=== PATIENT | male | born 1960 | race Caucasian/White ===

== ENCOUNTER 2019-10-21 12:30 | Inpatient (IN) | payer OTHER ==
[2019-10-21] MEDS ORDERED: Iopamidol-370 76% 500 ML 1 ML ONE (13:13)
[2019-10-21 13:34] LABS: #Basophils 0.1 thou/uL (0.0-0.2); #Eosinphils 0.3 thou/uL (0.0-0.7); #Lymphocytes 1.7 thou/uL (1.20-3.40); #Monocytes 0.7 thou/uL (0.11-0.59); #Neutrophils 3.3 thou/uL (1.40-6.50); %Basophils 0.8 % (0.0-1.0); %Eosinophils 5.3 % (0.0-10.0); %Lymphocytes 27.7 % (21.0-51.0); %Monocytes 11.8 % (0.0-10.0); %Neutrophils 54.3 % (42.0-75.0); Hemoglobin 13.9 g/dL (14.0-18.0); Mean Corpuscular Hemoglobin 32.4 pg (27.0-31.0); Mean Corpuscular Volume 95.4 fL (78.0-98.0); Mean Platelet Volume 9.1 fL (7.4-10.4); Platelet Count 197 thou/uL (130-400); RBC Distribution Width 13.6 % (11.5-14.5); Red Blood Cell (RBC) Count 4.28 mill/uL (4.70-6.10)
--- NOTE | 2019-10-21 13:36 | CT ---
Exam: Head CT without contrast HISTORY: Frequent falls. Disequilibrium. COMPARISON: 01/29/2003 FINDINGS: Hemorrhage: No intraparenchymal hemorrhage or extra-axial hematoma. Brain parenchyma: Cortical odonnell-white matter differentiation is preserved. No mass effect or midline shift. Basilar cisterns are patent. Ventricular system: Ventricles and sulci are patent and symmetric. Calvarium: Intact. Sinuses and mastoid air cells: Mucosal thickening of the right frontal sinus. IMPRESSION: No acute intracranial process.
[2019-10-21 13:43] LABS: PTT 29.2 sec (22.9-36.1); Prothrombin Time 12.9 sec (12.0-14.7)
[2019-10-21 13:47] LABS: ALT (SGPT) 11 U/L (8-55); AST (SGOT) 18 U/L (5-34); Albumin 3.4 g/dL (3.5-5.0); Alkaline Phosphatase 74 U/L (40-110); Anion Gap 11 mmol/L (10-20); BUN (Urea Nitrogen) 16 mg/dL (8.4-25.7); Bilirubin, Total 0.7 mg/dL (0.2-1.2); Calc. Creatinine Clearance 0 mL/min (70-130); Calcium 8.7 mg/dL (7.8-10.44); Carbon Dioxide 26 mmol/L (22-29); Chloride 107 mmol/L (98-107); Estimated GFR-MDRD 76; Globulin 2.9 g/dL (2.4-3.5); Glucose 118 mg/dL (70-105); Potassium 3.5 mmol/L (3.5-5.1); Protein, Total 6.3 g/dL (6.0-8.3); Sodium 140 mmol/L (136-145)
[2019-10-21 14:20] LABS: Bacteria/HPF None Seen HPF (None Seen); Bilirubin Negative (Negative); Blood, Urine Negative (Negative); Clarity Turbid (Clear); Glucose, Urine (Dipstick) Normal (Negative); Leukocyte 25 Leu/uL (Negative); Nitrite Negative (Negative); Protein, Urine (Dipstick) Negative (Neg-Trace); RBC/HPF 0-3 HPF (0-3); Squamous Epithelial 0-3 HPF (0-3); WBC/HPF 0-3 HPF (0-3)
[2019-10-21] MEDS ORDERED: Aspirin 325 MG TAB ONE (15:16)
--- NOTE | 2019-10-21 16:08 | RAD ---
Chest one view HISTORY: Weakness. Dyspnea. COMPARISON: 12/04/2015. FINDINGS: Cardiac silhouette and pulmonary vasculature are unremarkable. Mediastinum is midline with postoperative changes. No lobar consolidation or evidence of pneumothorax. Calcified granulomata are consistent with healed granulomatous disease. monitor and storage bin tender leads overlie the chest. IMPRESSION : No active cardiopulmonary abnormalities are demonstrated.
[2019-10-21] MEDS ORDERED: Acetaminophen 325 MG TAB PO PRN (17:01)
[2019-10-21] MEDS ORDERED: Ondansetron ODT 4 MG TAB SL PRN (17:01)
[2019-10-21] MEDS ORDERED: Ondansetron PF 4 MG/2 ML Vial IVP PRN ×2 (17:01→18:42)
[2019-10-21 18:20] VITALS: BMI 29.1
[2019-10-21] MEDS ORDERED: Ondansetron ODT 4 MG TAB PO PRN (18:42)
[2019-10-21] MEDS: PROVENTIL INHALER 6.7 G (200 INHALATIONS) INH SCH (19:31)
[2019-10-21] MEDS: Cyclobenzaprine 10 MG TAB PO SCH (20:57)
[2019-10-21] MEDS: Atorvastatin Calcium 40 MG TAB PO SCH (20:57)
[2019-10-21] MEDS: Carvedilol 6.25 MG TAB PO SCH (20:58)
--- NOTE | 2019-10-21 21:07 | HP ---
PRIMARY CARE PHYSICIAN: Chelle Acuña at the [facility]. CHIEF COMPLAINT: I have been staggering since yesterday. HISTORY OF PRESENT ILLNESS: Mr. Villarreal is a very pleasant 59-year-old gentleman, who has a history of hypertension and coronary artery disease. He was in his usual state of health until yesterday. He says that he was working on a drive shaft on a car. He says he was feeling fine prior to going on to the car to do work. When he finished doing the work and was trying to get up, he says he could barely stand up and was staggering. He also noted some numbness on the left side of his face and his left arm was numb. He also says that his leg on the left side did not seem to work the way it should. He has been having some numbness in both hands off and on for sometime. He thought about coming to the ER and in fact called the hospital ahead of time and they said for him to come on to the hospital, but he went to sleep and said he thought he might feel better in the morning but when he got up, he tried to stand up and then fell and then says he has fallen at least 3 times since this started and noticed that he was having difficulty walking and staggering and for this reason, he came to the ER for evaluation. He denies any chest pain or shortness of breath. No fevers, no chills. He does admit that he has been having some difficulty with swallowing. He says he has had gastroesophageal reflux or heartburn like symptoms for many years. He says that Prevacid and Pepcid had stopped working a while back and he basically just takes smith soda and water and this helps. He also notes some pain when he tries to eat as well and he says he has been having some trouble with bladder control off and on. Other than that, the review of systems is negative. REVIEW OF SYSTEMS: With regard to review of systems, all systems were reviewed and are negative except for that mentioned in the history of present illness. PAST MEDICAL HISTORY: Significant for hypertension, coronary artery disease, congestive heart failure, and asthma. PAST SURGICAL HISTORY: He has had bilateral hip replacements, as well as bypass surgery in the past. ALLERGIES: NO KNOWN DRUG ALLERGIES. SOCIAL HISTORY: He lives alone. He is . He has four children, which are better living. He smokes about a pack a day since he was 14 years old. He has been incarcerated four different times, during which time he did not smoke. He also drinks alcohol 24 ounces and he says he will drink this about seven times a month. He has not designated a surrogate decision maker, but he would like to be a full code. FAMILY HISTORY: Significant for COPD and diabetes in his mother. His father, he did know what illnesses are on his father's side. MEDICATIONS: Include: 1. Albuterol inhaler. 2. Carvedilol 6.25 mg twice daily. 3. Flexeril 5 mg t.i.d. 4. Folic acid 1 mg daily. 5. Motrin 800 mg t.i.d. 6. Lisinopril 10 mg daily. 7. Flomax 0.4 mg daily. PHYSICAL EXAMINATION: GENERAL: He is alert and oriented. He appears to be in no acute distress. He is well developed and well nourished. VITAL SIGNS: On admission, his blood pressure was 136/87, heart rate 65, respiratory rate of 13, temperature is 98.4. HEENT: Pupils are equal, round, and reactive. Extraocular muscles are intact. His sclerae anicteric. Throat, no erythema. No exudates. He is edentulous. Uvula is midline. NECK: There is no adenopathy. No bruits. LUNGS: He did have some mild expiratory wheeze, but there are no rhonchi. No rales. CARDIOVASCULAR: He has a normal S1 and S2. No S3 or S4. No murmurs, clicks, or rubs. ABDOMEN: Soft, nontender, and nondistended. Positive for bowel sounds. No rebound. No guarding. No organomegaly. EXTREMITIES: There is no clubbing or cyanosis. No edema. No calf tenderness. No joint effusions. NEUROLOGIC: His cranial nerves were essentially intact. His muscle strength was slightly weaker in the left lower extremity compared to the right, but he was able to lift his leg against resistance. He also had some difficulty with [id number] on the left leg and had some mild past-pointing with the left finger to nose. Romberg was not performed. Reflexes were slightly diminished but were essentially even throughout. On the skin, he had some changes of sun damage on his forehead as well as the back of the neck, there was an oval-like area in the center of the neck, had some pearly raised borders suspicious for possible basal cell carcinoma. He had another area that was slightly irregular on the left ankle that was irregular borders. LABORATORY DATA: Lab results: White blood cell count was 6.0, hemoglobin 13.9, hematocrit is 40.8, and platelet count was 197. INR is 1.0. Chemistry; sodium is 140, potassium 3.5, chloride is 107, CO2 is 26, BUN of 16, creatinine 1.0, glucose is 118. Urinalysis was essentially negative. EKG was sinus rhythm, the rate was in the 60s. He had some nonspecific ST-wave changes. CT scan of the brain was negative for any acute intracranial abnormalities. ASSESSMENT: This is a pleasant 59-year-old gentleman, who presents with ataxia and some slight weakness in the left lower extremity as well as some sensory loss. He will be placed in observation for possible transient ischemic attack versus stroke. Get an MRI of the brain as well as CT angiogram to evaluate the posterior circulation, echocardiogram and lipid panel. We will place him on aspirin therapy. 1. Tobacco abuse. He has already been counseled on the need to quit smoking. He says he does not feel that he needs a patch while he is in the hospital. 2. Coronary artery disease. We will need to reconcile and restart his home medications and again this appears to be clinically stable. 3. Possible skin cancers. I have discussed the possibility with the patient and the need to have these looked at by his primary care physician and possibly a Dermatology referral. 4. Gastroesophageal reflux disease, dysphagia and odynophagia. This is likely result of gastroesophageal reflux disease. However, given his age, this should be evaluated as well and this can also be accomplished in the outpatient setting. Job ID: [id number]
--- NOTE | 2019-10-21 22:21 | CT ---
CT ANGIO OF NECK WITH IV CONTRAST AND 3D POSTPROCESSIN10/21/19 HISTORY: Frequent falls and disequilibrium, left arm numbness. TIA. FINDINGS: There is mild calcified plaque in the carotid bulbs on either side. There is good flow in the common carotid, internal carotid and vertebrobasilar arteries without significant stenosis. There is tortuo sity of the internal carotid arteries on both sides. There are multilevel degenerative changes in the cervical spine. No neck mass or lymphadenopathy see n. The visualized paranasal sinuses and mastoids air cells are well aerated. IMPRESSION: No evidence of hemodynamically significant stenosis in the arteries of the neck. POS: RENATA
[2019-10-22] MEDS: PROVENTIL INHALER 6.7 G (200 INHALATIONS) INH SCH ×5 (00:08→23:28)
[2019-10-22 05:04] LABS: #Eosinphils 0.4 thou/uL (0.0-0.7); #Lymphocytes 1.9 thou/uL (1.20-3.40); #Monocytes 0.6 thou/uL (0.11-0.59); %Basophils 0.6 % (0.0-1.0); %Eosinophils 7.4 % (0.0-10.0); %Lymphocytes 31.3 % (21.0-51.0); %Monocytes 10.2 % (0.0-10.0); %Neutrophils 50.5 % (42.0-75.0); Hemoglobin 13.3 g/dL (14.0-18.0); Mean Corpuscular HGB CONC 32.4 g/dL (32.0-36.0); Mean Corpuscular Hemoglobin 31.1 pg (27.0-31.0); Mean Corpuscular Volume 95.9 fL (78.0-98.0); Mean Platelet Volume 9.1 fL (7.4-10.4); Platelet Count 197 thou/uL (130-400); RBC Distribution Width 13.5 % (11.5-14.5); Red Blood Cell (RBC) Count 4.28 mill/uL (4.70-6.10); White Blood Cell (WBC) Count 5.9 thou/uL (4.8-10.8)
[2019-10-22 05:23] LABS: Anion Gap 11 mmol/L (10-20); BUN (Urea Nitrogen) 13 mg/dL (8.4-25.7); Calc. Creatinine Clearance 121 mL/min (70-130); Calcium 8.2 mg/dL (7.8-10.44); Carbon Dioxide 24 mmol/L (22-29); Chloride 104 mmol/L (98-107); Cholesterol 137 mg/dl (< 200 Desired); Estimated GFR-MDRD 90; Glucose 88 mg/dL (70-105); HDL Cholesterol 46 mg/dL (>60 Neg Risk); LDL Cholesterol, Calculated 67 mg/dL; Potassium 3.1 mmol/L (3.5-5.1); Sodium 136 mmol/L (136-145); Triglycerides 119 mg/dL (Less than 150)
[2019-10-22] MEDS ORDERED: Potassium Chloride 20 MEQ TAB PO SCH (08:15)
[2019-10-22] MEDS: Aspirin 325 mg Enteric Coated Tablet PO SCH (08:24)
[2019-10-22] MEDS: Cyclobenzaprine 10 MG TAB PO SCH ×3 (08:24→20:19)
[2019-10-22] MEDS: Lisinopril 20 MG TAB PO SCH (08:24)
[2019-10-22] MEDS: Tamsulosin HCl 0.4 MG CAP PO SCH (08:24)
[2019-10-22] MEDS: Carvedilol 6.25 MG TAB PO SCH ×2 (08:24→20:20)
[2019-10-22] MEDS: Folic Acid 1 MG TAB PO SCH (08:25)
[2019-10-22] MEDS: Enoxaparin Sodium 40 MG/0.4 ML SYRINGE SC SCH (08:25)
--- NOTE | 2019-10-22 12:53 | CON ---
NEUROLOGY CONSULTATION DATE OF CONSULTATION: 10/22/2019 REASON FOR CONSULTATION: Incoordination, left-sided weakness. HISTORY OF PRESENT ILLNESS: Mr. Villarreal is a 59-year-old gentleman with history significant for hypertension and coronary artery disease, presented yesterday with difficulty walking. According to the patient, he drove back home and then he felt that he has numbness on the face and the left arm, and when he tried to walk, he was unable to do so because he was staggering and felt weak on the left side. He has fallen 3 times since he developed this difficulty walking and staggering, so he decided to come to the emergency room for further evaluation. The patient denies nausea or vomiting, but does admit to dizziness. He denies blurred vision, loss of vision, loss of consciousness, or confusion associated with these episodes. He also denies headache, chest pain, abdominal pain, fever, recent illness, viral illness, chills, or shortness of breath. He does admit to some difficulty with swallowing. REVIEW OF SYSTEMS: All 14 systems were reviewed and were negative except the pertinent positives and negatives mentioned in the HPI. PAST MEDICAL HISTORY: Hypertension, coronary artery disease, asthma, congestive heart failure. PAST SURGICAL HISTORY: Bilateral hip replacement, bypass surgery. ALLERGIES: NO KNOWN DRUG ALLERGIES. SOCIAL HISTORY: The patient lives alone. He is a . He has 4 children. Smokes pack a day since the age of 14. He drinks 24 ounces of alcohol. FAMILY HISTORY: Significant for COPD and diabetes on maternal side. HOME MEDICATIONS: 1. Albuterol inhaler. 2. Carvedilol 6.25 mg twice daily. 3. Flexeril 5 mg t.i.d. 4. Folic acid 1 mg daily. 5. Motrin 800 mg t.i.d. 6. Lisinopril 10 mg daily. 7. Flomax 0.4 mg daily. PHYSICAL EXAMINATION: VITAL SIGNS: Blood pressure 138/80, pulse 80, respiratory rate 18. GENERAL: Alert and awake male, in no acute distress. HEENT: Normocephalic and atraumatic. NECK: Supple. LUNGS: Clear. CARDIOVASCULAR: Regular rate and rhythm. ABDOMEN: Soft. NEUROLOGIC: Mental status; the patient is alert and oriented to person, place, and time. Speech is clear. Fund of knowledge is appropriate. Recent and remote memory intact. Motor; muscle tone and bulk are normal. Strength; 4+/5 on the left upper and lower extremities, 5/5 in the right upper and lower extremities. Positive left pronator drift. Reflexes; symmetric bilaterally. Cerebellar; finger-nose testing, mild dysmetria on the left, intact on the right. Sensory; withdraws to pinprick bilaterally. Gait deferred due to the patient's safety reasons. DATA REVIEWED: I reviewed the labs, which were essentially unremarkable. Urinalysis was also unremarkable. EKG shows normal sinus rhythm. Head CT was reviewed, which was negative for acute intracranial pathology. CT angiogram of the neck reviewed, which was negative for hemodynamically significant stenosis ASSESSMENT AND PLAN: Mr. Charles Villarreal is a 59-year-old male with history significant for ataxia and mild left hemiparesis. He does have risk factors for most likely TIA versus stroke. Recommend MRI of the brain to rule out acute intracranial process. CT angiogram to evaluate posterior circulation since he also complains of dizziness with weakness. 2D echo to rule out cardioembolic source. The patient has been taking baby aspirin at home. Consider switching him to full-dose aspirin. Neuro checks every 4 hours. Check fasting lipid panel and high-intensity statin for secondary stroke prevention. Telemetry to rule out arrhythmias. Continue home medications. Continue medical management per Primary Team. PT/OT/Speech. DVT prophylaxis. We will continue to follow. Thank you for the consult. Job ID: [id number] MTDD
--- NOTE | 2019-10-22 13:14 | PDOC.HOSPP ---
- Subjective Encounter Date: 10/22/19 Encounter Time: 13:12 Subjective: Mr. Villarreal was seen today in follow-up of left sided weakness and ataxia. He notes continued trouble using his left arm and leg. He says " they do what they want to". He also says he feels real tired, and has been sleeping most of the day. - Objective Vital Signs & Weight: Vital Signs (12 hours) Temp Pulse Resp BP BP Pulse Ox 10/22/19 12:00 97.2 F L 54 L 20 139/82 97 10/22/19 08:00 97.7 F 69 17 193/100 H 96 10/22/19 04:19 98.4 F 63 16 140/89 98 Weight Weight 208 lb 11.2 oz Result Diagrams: 10/22/19 04:38 10/22/19 04:38 Hospitalist ROS - Medication Medications: Active Medications Generic Name Dose Route Start Last Admin Trade Name Freq PRN Reason Stop Dose Admin Albuterol Sulfate 2 puff 10/21/19 19:00 10/22/19 06:10 Proventil Hfa INH 2 puff [id number] LAUREN Administration Aspirin 325 mg 10/22/19 09:00 10/22/19 08:24 Ecotrin PO 325 mg DAILY LAUREN Administration Atorvastatin Calcium 40 mg 10/21/19 21:00 10/21/19 20:57 Lipitor PO 40 mg HS LAUREN Administration Carvedilol 6.25 mg 10/21/19 21:00 10/22/19 08:24 Coreg PO 6.25 mg BID LAUREN Administration Cyclobenzaprine HCl 5 mg 10/21/19 21:00 10/22/19 08:24 Flexeril PO 5 mg TID LAUREN Administration Enoxaparin Sodium 40 mg 10/22/19 09:00 10/22/19 08:25 Lovenox SC 40 mg 0900 LAUREN Administration Folic Acid 1 mg 10/22/19 09:00 10/22/19 08:25 Folvite PO 1 mg DAILY LAUREN Administration Lisinopril 20 mg 10/22/19 09:00 10/22/19 08:24 Zestril PO 20 mg DAILY LAUREN Administration Pantoprazole Sodium 40 mg 10/22/19 09:00 10/22/19 08:24 Protonix PO 40 mg DAILY LAUREN Administration Sodium Chloride 10 ml 10/21/19 18:42 10/22/19 08:25 Flush - Normal Saline IVF 10 ml PRN PRN Administration Saline Flush Tamsulosin HCl 0.4 mg 10/22/19 09:00 10/22/19 08:24 Flomax PO 0.4 mg DAILY LAUREN Administration - Exam Eye: PERRL, anicteric sclera Heart: RRR, no murmur, no gallops, no rubs, normal peripheral pulses Respiratory: CTAB, no wheezes, no rales, no ronchi, normal chest expansion Gastrointestinal: soft, non-tender, non-distended, normal bowel sounds, no palpable masses Extremities: no cyanosis, no edema (+ oval lesion with raised borders on his posterior neck, and lesion with rreguar borders on the anterior left ankle) Hosp A/P (1) Left-sided weakness Code(s): R53.1 - WEAKNESS Status: Acute (2) Ataxia Code(s): R27.0 - ATAXIA, UNSPECIFIED Status: Acute (3) Dysphagia Code(s): R13.10 - DYSPHAGIA, UNSPECIFIED Status: Chronic (4) Tobacco abuse Code(s): Z72.0 - TOBACCO USE Status: Chronic (5) Hypertension Code(s): I10 - ESSENTIAL (PRIMARY) HYPERTENSION Status: Chronic - Plan * Left sided weakness and ataxia- suspicious for cerebellar CVA- await MRI * CTA findings noted * Tobacco abuse- discussed * HTN- but pressure was a bit labile, but most recent reading acceptable * Dysphagia and odynophagia- will need outpatient GI workup- continue PPI * Possible skin cancer- will need outpatient Dermatology evaluation
--- NOTE | 2019-10-22 18:31 | MRI ---
MRI OF THE BRAIN WITHOUT CONTRAST: 10/22/19 HISTORY: TIA. FINDINGS: Correlation is made with the previous day's CT scan. There is a small focal area of restricted diffusion in the right lateral thalamus with associated T2 prolongation. No evidence of hemorrhage, midline shift, or abnormal extra-axial fluid collections is seen. The vent ricular size is appropriate and the basilar cisterns patent. There is mild mucosal disease in the par anasal sinuses. IMPRESSION: Recent lacunar infarction in the right thalamus. POS: MZA
[2019-10-22] MEDS: Atorvastatin Calcium 40 MG TAB PO SCH (20:20)
[2019-10-23] MEDS: PROVENTIL INHALER 6.7 G (200 INHALATIONS) INH SCH ×3 (06:40→19:06)
[2019-10-23] MEDS: Aspirin 325 mg Enteric Coated Tablet PO SCH (08:44)
[2019-10-23] MEDS: Cyclobenzaprine 10 MG TAB PO SCH ×3 (08:45→21:57)
[2019-10-23] MEDS: Carvedilol 6.25 MG TAB PO SCH ×2 (08:45→21:57)
[2019-10-23] MEDS: Folic Acid 1 MG TAB PO SCH (08:46)
[2019-10-23] MEDS: Enoxaparin Sodium 40 MG/0.4 ML SYRINGE SC SCH (08:46)
[2019-10-23] MEDS: Tamsulosin HCl 0.4 MG CAP PO SCH (08:46)
[2019-10-23] MEDS: Lisinopril 20 MG TAB PO SCH (08:46)
--- NOTE | 2019-10-23 18:39 | PDOC.HOSPP ---
- Subjective Encounter Date: 10/23/19 Encounter Time: 09:45 Subjective: pt up in bed no complains - Objective Vital Signs & Weight: Vital Signs (12 hours) Temp Pulse Pulse Pulse Resp BP BP 10/23/19 15:39 97.6 F 59 L 20 10/23/19 11:26 97.6 F 60 16 10/23/19 09:58 56 L 59 L 130/76 10/23/19 09:06 59 L 58 L 143/84 H 10/23/19 08:46 137/78 10/23/19 08:45 137/78 10/23/19 07:02 98.1 F 56 L 18 10/23/19 06:40 56 L 16 BP BP Pulse Ox 10/23/19 15:39 134/70 96 10/23/19 11:26 127/80 98 10/23/19 09:58 138/83 10/23/19 09:06 134/79 10/23/19 08:46 10/23/19 08:45 10/23/19 07:02 155/89 H 97 10/23/19 06:40 Weight Weight 208 lb 11.2 oz I&O: 10/22/19 10/23/19 10/24/19 06:59 06:59 06:59 Intake Total 1250 240 Output Total 600 460 Balance 650 -220 Result Diagrams: 10/22/19 04:38 10/22/19 04:38 Hospitalist ROS - Review of Systems Cardiovascular: denies: chest pain, palpitations, orthopnea, paroxysmal noc. dyspnea, edema, light headedness, other Gastrointestinal: denies: nausea, vomiting, abdominal pain, diarrhea, constipation, melena, hematochezia, other Genitourinary: denies: dysuria, frequency, incontinence, hematuria, retention, other - Medication Medications: Active Medications Generic Name Dose Route Start Last Admin Trade Name Freq PRN Reason Stop Dose Admin Albuterol Sulfate 2 puff 10/21/19 19:00 10/23/19 13:20 Proventil Hfa INH 2 puff [id number] LAUREN Administration Aspirin 325 mg 10/22/19 09:00 10/23/19 08:44 Ecotrin PO 325 mg DAILY LAUREN Administration Atorvastatin Calcium 40 mg 10/21/19 21:00 10/22/19 20:20 Lipitor PO 40 mg HS LAUREN Administration Carvedilol 6.25 mg 10/21/19 21:00 10/23/19 08:45 Coreg PO 6.25 mg BID LAUREN Administration Cyclobenzaprine HCl 5 mg 10/21/19 21:00 10/23/19 14:58 Flexeril PO 5 mg TID LAUREN Administration Enoxaparin Sodium 40 mg 10/22/19 09:00 10/23/19 08:46 Lovenox SC 40 mg 0900 LAUREN Administration Folic Acid 1 mg 10/22/19 09:00 10/23/19 08:46 Folvite PO 1 mg DAILY LAUREN Administration Lisinopril 20 mg 10/22/19 09:00 10/23/19 08:46 Zestril PO 20 mg DAILY LAUREN Administration Pantoprazole Sodium 40 mg 10/22/19 09:00 10/23/19 08:46 Protonix PO 40 mg DAILY LAUREN Administration Sodium Chloride 10 ml 10/21/19 18:42 10/23/19 08:47 Flush - Normal Saline IVF 10 ml PRN PRN Administration Saline Flush Tamsulosin HCl 0.4 mg 10/22/19 09:00 10/23/19 08:46 Flomax PO 0.4 mg DAILY LAUREN Administration - Exam Heart: negative: RRR, no murmur, no gallops, no rubs, normal peripheral pulses, irregular, diminshed peripheral pulses, murmur present, II/IV, III/IV Respiratory: negative: CTAB, no wheezes, no rales, no ronchi, normal chest expansion, no tachypnea, normal percussion, rales, rhonchi, tachypneic, wheezes Gastrointestinal: negative: soft, non-tender, non-distended, normal bowel sounds , no palpable masses, no hepatomegaly, no splenomegaly, no bruit, no guarding, no rigidity, tender to palpation, distended, diminished bowl sounds, voluntary guarding Neurological - other findings: weakness to left upper ext, off shoot finger to nose using left hand. Hosp A/P (1) Left-sided weakness Code(s): R53.1 - WEAKNESS Status: Acute (2) Dysphagia Code(s): R13.10 - DYSPHAGIA, UNSPECIFIED Status: Chronic (3) Hypertension Code(s): I10 - ESSENTIAL (PRIMARY) HYPERTENSION Status: Chronic (4) Tobacco abuse Code(s): Z72.0 - TOBACCO USE Status: Chronic (5) Dehydration Code(s): E86.0 - DEHYDRATION Status: Acute - Plan pt on asa/stain. MRI indicated right thalamic stroke. pt will need rehab. pt has small pimple to left flank area will order topical bactroban.
[2019-10-23] MEDS: Atorvastatin Calcium 40 MG TAB PO SCH (21:57)
[2019-10-23] MEDS: Mupirocin 2% Ointment 22 GM Tube TOP SCH (21:57)
[2019-10-24] MEDS: PROVENTIL INHALER 6.7 G (200 INHALATIONS) INH SCH ×5 (00:13→23:40)
[2019-10-24] MEDS: Acetaminophen 325 MG TAB PO PRN ×2 (03:05→21:21)
[2019-10-24] MEDS: Lisinopril 20 MG TAB PO SCH (08:32)
[2019-10-24] MEDS: Mupirocin 2% Ointment 22 GM Tube TOP SCH ×3 (08:32→21:22)
[2019-10-24] MEDS: Folic Acid 1 MG TAB PO SCH (08:33)
[2019-10-24] MEDS: Aspirin 325 mg Enteric Coated Tablet PO SCH (08:33)
[2019-10-24] MEDS: Carvedilol 6.25 MG TAB PO SCH ×2 (08:33→21:21)
[2019-10-24] MEDS: Tamsulosin HCl 0.4 MG CAP PO SCH (08:33)
[2019-10-24] MEDS: Cyclobenzaprine 10 MG TAB PO SCH ×3 (08:33→21:21)
[2019-10-24] MEDS: Enoxaparin Sodium 40 MG/0.4 ML SYRINGE SC SCH (08:33)
[2019-10-24 09:45] LABS: #Eosinphils 0.4 thou/uL (0.0-0.7); #Lymphocytes 1.6 thou/uL (1.20-3.40); #Monocytes 0.9 thou/uL (0.11-0.59); #Neutrophils 3.6 thou/uL (1.40-6.50); %Basophils 0.6 % (0.0-1.0); %Lymphocytes 24.2 % (21.0-51.0); %Monocytes 13.5 % (0.0-10.0); %Neutrophils 55.7 % (42.0-75.0); Hemoglobin 13.8 g/dL (14.0-18.0); Mean Corpuscular HGB CONC 33.1 g/dL (32.0-36.0); Mean Corpuscular Volume 96.8 fL (78.0-98.0); Platelet Count 202 thou/uL (130-400); RBC Distribution Width 13.5 % (11.5-14.5); Red Blood Cell (RBC) Count 4.31 mill/uL (4.70-6.10); White Blood Cell (WBC) Count 6.5 thou/uL (4.8-10.8)
[2019-10-24 10:07] LABS: Anion Gap 9 mmol/L (10-20); BUN (Urea Nitrogen) 16 mg/dL (8.4-25.7); Calc. Creatinine Clearance 112 mL/min (70-130); Calcium 8.6 mg/dL (7.8-10.44); Carbon Dioxide 27 mmol/L (22-29); Chloride 103 mmol/L (98-107); Estimated GFR-MDRD 82; Glucose 79 mg/dL (70-105); Potassium 4.2 mmol/L (3.5-5.1); Sodium 135 mmol/L (136-145)
--- NOTE | 2019-10-24 13:25 | PDOC.HOSPP ---
- Subjective Encounter Date: 10/24/19 Encounter Time: 10:30 Subjective: pt up in bed no complains. - Objective Vital Signs & Weight: Vital Signs (12 hours) Temp Pulse Resp BP BP Pulse Ox 10/24/19 12:00 97.9 F 63 16 134/79 97 10/24/19 07:59 97.5 F L 61 16 121/68 96 10/24/19 07:48 96 10/24/19 03:38 97.7 F 65 20 121/66 95 Weight Weight 208 lb 11.2 oz I&O: 10/23/19 10/24/19 10/25/19 06:59 06:59 06:59 Intake Total 1250 1065 Output Total 600 1060 Balance 650 5 Result Diagrams: 10/24/19 09:19 10/24/19 09:19 Hospitalist ROS - Review of Systems Cardiovascular: denies: chest pain, palpitations, orthopnea, paroxysmal noc. dyspnea, edema, light headedness, other Gastrointestinal: denies: nausea, vomiting, abdominal pain, diarrhea, constipation, melena, hematochezia, other Musculoskeletal: reports: neck pain - Medication Medications: Active Medications Generic Name Dose Route Start Last Admin Trade Name Freq PRN Reason Stop Dose Admin Acetaminophen 650 mg 10/21/19 18:42 10/24/19 03:05 Tylenol PO 650 mg Q4H PRN Administration Headache/Fever/Mild Pain (1-3) Albuterol Sulfate 2 puff 10/21/19 19:00 10/24/19 06:50 Proventil Hfa INH 2 puff [id number] LAUREN Administration Aspirin 325 mg 10/22/19 09:00 10/24/19 08:33 Ecotrin PO 325 mg DAILY LAUREN Administration Atorvastatin Calcium 40 mg 10/21/19 21:00 10/23/19 21:57 Lipitor PO 40 mg HS LAUREN Administration Carvedilol 6.25 mg 10/21/19 21:00 10/24/19 08:33 Coreg PO 6.25 mg BID LAUREN Administration Cyclobenzaprine HCl 5 mg 10/21/19 21:00 10/24/19 08:33 Flexeril PO 5 mg TID LAUREN Administration Enoxaparin Sodium 40 mg 10/22/19 09:00 10/24/19 08:33 Lovenox SC 40 mg 0900 LAUREN Administration Folic Acid 1 mg 10/22/19 09:00 10/24/19 08:33 Folvite PO 1 mg DAILY LAUREN Administration Lisinopril 20 mg 10/22/19 09:00 10/24/19 08:32 Zestril PO 20 mg DAILY LAUREN Administration Mupirocin 0 gm 10/23/19 21:00 10/24/19 08:32 Bactroban 2% Ointment TOP 1 applic TID LAUREN Administration Pantoprazole Sodium 40 mg 10/22/19 09:00 10/24/19 08:32 Protonix PO 40 mg DAILY LAUREN Administration Sodium Chloride 10 ml 10/21/19 18:42 10/23/19 08:47 Flush - Normal Saline IVF 10 ml PRN PRN Administration Saline Flush Tamsulosin HCl 0.4 mg 10/22/19 09:00 10/24/19 08:33 Flomax PO 0.4 mg DAILY LAUREN Administration - Exam Neck: negative: supple, symmetric, no JVD, no thyromegaly, no lymphadenopathy, no carotid bruit, JVD Heart: negative: RRR, no murmur, no gallops, no rubs, normal peripheral pulses, irregular, diminshed peripheral pulses, murmur present, II/IV, III/IV Respiratory: negative: CTAB, no wheezes, no rales, no ronchi, normal chest expansion, no tachypnea, normal percussion, rales, rhonchi, tachypneic, wheezes Gastrointestinal: negative: soft, non-tender, non-distended, normal bowel sounds , no palpable masses, no hepatomegaly, no splenomegaly, no bruit, no guarding, no rigidity, tender to palpation, distended, diminished bowl sounds, voluntary guarding Hosp A/P (1) Left-sided weakness Code(s): R53.1 - WEAKNESS Status: Acute (2) Dysphagia Code(s): R13.10 - DYSPHAGIA, UNSPECIFIED Status: Chronic (3) Hypertension Code(s): I10 - ESSENTIAL (PRIMARY) HYPERTENSION Status: Chronic (4) Tobacco abuse Code(s): Z72.0 - TOBACCO USE Status: Chronic (5) Dehydration Code(s): E86.0 - DEHYDRATION Status: Acute - Plan pt on asa/stain. MRI indicated right thalamic stroke. pt will need rehab. pt has small pimple to left flank area will order topical bactroban. 10/23 pt will need snf. He feels well today. will continue asa/stain for now. Pt still weak and lives alone.
[2019-10-24] MEDS: Atorvastatin Calcium 40 MG TAB PO SCH (21:21)
[2019-10-25] MEDS: PROVENTIL INHALER 6.7 G (200 INHALATIONS) INH SCH ×3 (06:52→17:57)
[2019-10-25] MEDS: Cyclobenzaprine 10 MG TAB PO SCH ×3 (08:47→21:06)
[2019-10-25] MEDS: Acetaminophen 325 MG TAB PO PRN (08:47)
[2019-10-25] MEDS: Carvedilol 6.25 MG TAB PO SCH ×2 (08:48→21:06)
[2019-10-25] MEDS: Tamsulosin HCl 0.4 MG CAP PO SCH (08:48)
[2019-10-25] MEDS: Enoxaparin Sodium 40 MG/0.4 ML SYRINGE SC SCH (08:48)
[2019-10-25] MEDS: Aspirin 325 mg Enteric Coated Tablet PO SCH (08:48)
[2019-10-25] MEDS: Lisinopril 20 MG TAB PO SCH (08:48)
[2019-10-25] MEDS: Folic Acid 1 MG TAB PO SCH (08:48)
[2019-10-25] MEDS: Mupirocin 2% Ointment 22 GM Tube TOP SCH ×3 (08:52→21:07)
--- NOTE | 2019-10-25 09:22 | PDOC.HOSPP ---
- Subjective Encounter Date: 10/25/19 Encounter Time: 09:12 Subjective: pt up in bed no complains - Objective Vital Signs & Weight: Vital Signs (12 hours) Temp Pulse Resp BP BP Pulse Ox 10/25/19 08:00 97.4 F L 63 16 124/70 98 10/25/19 06:52 76 16 97 10/25/19 04:54 97.6 F 61 18 139/81 97 10/24/19 23:40 57 L 14 10/24/19 21:17 97.6 F 62 18 150/89 H 98 Weight Weight 208 lb 11.2 oz I&O: 10/24/19 10/25/19 10/26/19 06:59 06:59 06:59 Intake Total 1065 500 Output Total 1060 300 Balance 5 200 Result Diagrams: 10/24/19 09:19 10/24/19 09:19 Hospitalist ROS - Review of Systems Cardiovascular: denies: chest pain, palpitations, orthopnea, paroxysmal noc. dyspnea, edema, light headedness, other Gastrointestinal: denies: nausea, vomiting, abdominal pain, diarrhea, constipation, melena, hematochezia, other Genitourinary: denies: dysuria, frequency, incontinence, hematuria, retention, other - Medication Medications: Active Medications Generic Name Dose Route Start Last Admin Trade Name Freq PRN Reason Stop Dose Admin Acetaminophen 650 mg 10/21/19 18:42 10/25/19 08:47 Tylenol PO 650 mg Q4H PRN Administration Headache/Fever/Mild Pain (1-3) Albuterol Sulfate 2 puff 10/21/19 19:00 10/25/19 06:52 Proventil Hfa INH 2 puff [id number] LAUREN Administration Aspirin 325 mg 10/22/19 09:00 10/25/19 08:48 Ecotrin PO 325 mg DAILY LAUREN Administration Atorvastatin Calcium 40 mg 10/21/19 21:00 10/24/19 21:21 Lipitor PO 40 mg HS LAUREN Administration Carvedilol 6.25 mg 10/21/19 21:00 10/25/19 08:48 Coreg PO 6.25 mg BID LAUREN Administration Cyclobenzaprine HCl 5 mg 10/21/19 21:00 10/25/19 08:47 Flexeril PO 5 mg TID LAUREN Administration Enoxaparin Sodium 40 mg 10/22/19 09:00 10/25/19 08:48 Lovenox SC 40 mg 0900 LAUREN Administration Folic Acid 1 mg 10/22/19 09:00 10/25/19 08:48 Folvite PO 1 mg DAILY LAUREN Administration Lisinopril 20 mg 10/22/19 09:00 10/25/19 08:48 Zestril PO 20 mg DAILY LAUREN Administration Mupirocin 0 gm 10/23/19 21:00 10/25/19 08:52 Bactroban 2% Ointment TOP 1 applic TID LAUREN Administration Pantoprazole Sodium 40 mg 10/22/19 09:00 10/25/19 08:48 Protonix PO 40 mg DAILY LAUREN Administration Sodium Chloride 10 ml 10/21/19 18:42 10/23/19 08:47 Flush - Normal Saline IVF 10 ml PRN PRN Administration Saline Flush Tamsulosin HCl 0.4 mg 10/22/19 09:00 10/25/19 08:48 Flomax PO 0.4 mg DAILY LAUREN Administration - Exam Neck: negative: supple, symmetric, no JVD, no thyromegaly, no lymphadenopathy, no carotid bruit, JVD Heart: negative: RRR, no murmur, no gallops, no rubs, normal peripheral pulses, irregular, diminshed peripheral pulses, murmur present, II/IV, III/IV Respiratory: negative: CTAB, no wheezes, no rales, no ronchi, normal chest expansion, no tachypnea, normal percussion, rales, rhonchi, tachypneic, wheezes Hosp A/P (1) Left-sided weakness Code(s): R53.1 - WEAKNESS Status: Acute (2) Dysphagia Code(s): R13.10 - DYSPHAGIA, UNSPECIFIED Status: Chronic (3) Hypertension Code(s): I10 - ESSENTIAL (PRIMARY) HYPERTENSION Status: Chronic (4) Tobacco abuse Code(s): Z72.0 - TOBACCO USE Status: Chronic (5) Dehydration Code(s): E86.0 - DEHYDRATION Status: Acute - Plan pt on asa/stain. MRI indicated right thalamic stroke. pt will need rehab. pt has small pimple to left flank area will order topical bactroban. 10/23 pt will need snf. He feels well today. will continue asa/statin for now. Pt still weak and lives alone. 10/24 pt up in bed educated to eat slowly. will continue asa/statin
--- NOTE | 2019-10-25 12:01 | PDOC.HOSPP ---
- Subjective Encounter Date: 10/25/19 Subjective: NEUROLOGY PROGRESS NOTE No acute events overnight. Patient feels better but still weak. Follows commands appropriately. - Objective Vital Signs & Weight: Vital Signs (12 hours) Temp Pulse Resp BP Pulse Ox 10/25/19 11:37 97.8 F 60 18 129/88 95 10/25/19 08:47 98 10/25/19 08:00 97.4 F L 63 16 124/70 98 10/25/19 06:52 76 16 97 10/25/19 04:54 97.6 F 61 18 139/81 97 Weight Weight 208 lb 11.2 oz I&O: 10/24/19 10/25/19 10/26/19 06:59 06:59 06:59 Intake Total 1065 500 Output Total 1060 300 Balance 5 200 Result Diagrams: 10/24/19 09:19 10/24/19 09:19 Radiology Reviewed by me: Yes EKG Reviewed by me: Yes Hospitalist ROS - Review of Systems Constitutional: denies: fever, chills, sweats, weakness, malaise, other ENT: denies: ear pain, ear discharge, nose pain, nose discharge, nose congestion , mouth pain, mouth swelling, throat pain, throat swelling, other Respiratory: denies: cough, dry, shortness of breath, hemoptysis, SOB with excertion, pleuritic pain, sputum, wheezing, other Cardiovascular: denies: chest pain, palpitations, orthopnea, paroxysmal noc. dyspnea, edema, light headedness, other Gastrointestinal: denies: nausea, vomiting, abdominal pain, diarrhea, constipation, melena, hematochezia, other Genitourinary: denies: dysuria, frequency, incontinence, hematuria, retention, other Musculoskeletal: denies: neck pain, shoulder pain, arm pain, back pain, hand pain, leg pain, foot pain, other Skin: denies: rash, lesions, wanda, bruising, other Neurological: reports: weakness, numbness, incoordination - Medication Medications: Active Medications Generic Name Dose Route Start Last Admin Trade Name Freq PRN Reason Stop Dose Admin Acetaminophen 650 mg 10/21/19 18:42 10/25/19 08:47 Tylenol PO 650 mg Q4H PRN Administration Headache/Fever/Mild Pain (1-3) Albuterol Sulfate 2 puff 10/21/19 19:00 10/25/19 06:52 Proventil Hfa INH 2 puff [id number] LAUREN Administration Aspirin 325 mg 10/22/19 09:00 10/25/19 08:48 Ecotrin PO 325 mg DAILY LAUREN Administration Atorvastatin Calcium 40 mg 10/21/19 21:00 10/24/19 21:21 Lipitor PO 40 mg HS LAUREN Administration Carvedilol 6.25 mg 10/21/19 21:00 10/25/19 08:48 Coreg PO 6.25 mg BID LAUREN Administration Cyclobenzaprine HCl 5 mg 10/21/19 21:00 10/25/19 08:47 Flexeril PO 5 mg TID LAUREN Administration Enoxaparin Sodium 40 mg 10/22/19 09:00 10/25/19 08:48 Lovenox SC 40 mg 0900 LAUREN Administration Folic Acid 1 mg 10/22/19 09:00 10/25/19 08:48 Folvite PO 1 mg DAILY LAUREN Administration Lisinopril 20 mg 10/22/19 09:00 10/25/19 08:48 Zestril PO 20 mg DAILY LAUREN Administration Mupirocin 0 gm 10/23/19 21:00 10/25/19 08:52 Bactroban 2% Ointment TOP 1 applic TID LAUREN Administration Pantoprazole Sodium 40 mg 10/22/19 09:00 10/25/19 08:48 Protonix PO 40 mg DAILY LAUREN Administration Sodium Chloride 10 ml 10/21/19 18:42 10/23/19 08:47 Flush - Normal Saline IVF 10 ml PRN PRN Administration Saline Flush Tamsulosin HCl 0.4 mg 10/22/19 09:00 10/25/19 08:48 Flomax PO 0.4 mg DAILY LAUREN Administration - Exam General Appearance: awake alert Eye: PERRL ENT: normocephalic atraumatic Neck: supple Heart: RRR Respiratory: CTAB Gastrointestinal: soft Extremities: no cyanosis, no clubbing, no edema Skin: normal turgor, no lesions, no rashes Neurological: cranial nerve grossly intact, no new deficit Neurological - other findings: left hemiparesis, left dysmetria, left focal paraesthesias Musculoskeletal: normal tone, no muscle wasting Psychiatric: normal affect, normal behavior, A&O x 3, oriented to person, oriented to place, oriented to time Hosp A/P (1) CVA (cerebral vascular accident) Code(s): I63.9 - CEREBRAL INFARCTION, UNSPECIFIED Status: Acute (2) Left-sided weakness Code(s): R53.1 - WEAKNESS Status: Acute (3) Dysphagia Code(s): R13.10 - DYSPHAGIA, UNSPECIFIED Status: Chronic (4) Hypertension Code(s): I10 - ESSENTIAL (PRIMARY) HYPERTENSION Status: Chronic (5) Tobacco abuse Code(s): Z72.0 - TOBACCO USE Status: Chronic (6) Dehydration Code(s): E86.0 - DEHYDRATION Status: Acute - Plan PT/OT, speech therapy, out of bed/ambulate, DVT proph w/SCDs 59 year old with left sided weakness and incoordination. He does have vascular risk factors. MRI Brain reviewed which was consistent with acute right thalamic infarction. Echo showed [id number]%. CTA of neck reviewed which was negative for hemodynamically significant stenosis. Neurochecks every 4 hours. Aspirin and high intensity statin for secondary stroke prevention. Continue home medications. PT/OT/Speech Telemetry. Permissive BP control. Strict control of BG. Continue medical management per primary team. Plan discussed in detail with the patient and the floor team.
[2019-10-25] MEDS: Atorvastatin Calcium 40 MG TAB PO SCH (21:06)
[2019-10-26] MEDS: PROVENTIL INHALER 6.7 G (200 INHALATIONS) INH SCH ×5 (00:27→23:56)
[2019-10-26] MEDS: Enoxaparin Sodium 40 MG/0.4 ML SYRINGE SC SCH (08:38)
[2019-10-26] MEDS: Lisinopril 20 MG TAB PO SCH (08:39)
[2019-10-26] MEDS: Folic Acid 1 MG TAB PO SCH (08:39)
[2019-10-26] MEDS: Cyclobenzaprine 10 MG TAB PO SCH ×3 (08:39→20:53)
[2019-10-26] MEDS: Tamsulosin HCl 0.4 MG CAP PO SCH (08:39)
[2019-10-26] MEDS: Carvedilol 6.25 MG TAB PO SCH ×2 (08:39→20:53)
[2019-10-26] MEDS: Aspirin 325 mg Enteric Coated Tablet PO SCH (08:39)
[2019-10-26] MEDS: Mupirocin 2% Ointment 22 GM Tube TOP SCH ×3 (08:44→20:53)
--- NOTE | 2019-10-26 12:43 | PDOC.HOSPP ---
- Subjective Encounter Date: 10/26/19 Subjective: NEUROLOGY PROGRESS NOTE No acute events overnight. Patient feels better . Follows commands appropriately. - Objective Vital Signs & Weight: Vital Signs (12 hours) Temp Pulse Pulse Pulse Resp BP BP 10/26/19 12:19 63 16 10/26/19 11:52 97.9 F 62 16 10/26/19 09:14 63 62 123/74 130/82 10/26/19 08:39 10/26/19 07:55 97.7 F 62 14 10/26/19 07:17 63 16 10/26/19 04:08 97.5 F L 77 14 BP BP Pulse Ox 10/26/19 12:19 96 10/26/19 11:52 135/78 98 10/26/19 09:14 10/26/19 08:39 97 10/26/19 07:55 117/70 97 10/26/19 07:17 97 10/26/19 04:08 101/67 94 L Weight Weight 208 lb 11.2 oz I&O: 10/25/19 10/26/19 10/27/19 06:59 06:59 06:59 Intake Total 500 1500 Output Total 300 Balance 200 1500 Result Diagrams: 10/24/19 09:19 10/24/19 09:19 Radiology Reviewed by me: Yes EKG Reviewed by me: Yes Hospitalist ROS - Review of Systems Constitutional: denies: fever, chills, sweats, weakness, malaise, other Eyes: denies: pain, vision change, conjunctivae inflammation, eyelid inflammation, redness, other ENT: denies: ear pain, ear discharge, nose pain, nose discharge, nose congestion , mouth pain, mouth swelling, throat pain, throat swelling, other Respiratory: denies: cough, dry, shortness of breath, hemoptysis, SOB with excertion, pleuritic pain, sputum, wheezing, other Cardiovascular: denies: chest pain, palpitations, orthopnea, paroxysmal noc. dyspnea, edema, light headedness, other Gastrointestinal: denies: nausea, vomiting, abdominal pain, diarrhea, constipation, melena, hematochezia, other Genitourinary: denies: dysuria, frequency, incontinence, hematuria, retention, other Musculoskeletal: denies: neck pain, shoulder pain, arm pain, back pain, hand pain, leg pain, foot pain, other Neurological: reports: weakness, numbness. denies: incoordination, change in speech, confusion, seizures, other - Medication Medications: Active Medications Generic Name Dose Route Start Last Admin Trade Name Sadaf PRN Reason Stop Dose Admin Acetaminophen 650 mg 10/21/19 18:42 10/25/19 08:47 Tylenol PO 650 mg Q4H PRN Administration Headache/Fever/Mild Pain (1-3) Albuterol Sulfate 2 puff 10/21/19 19:00 10/26/19 12:19 Proventil Hfa INH 2 puff [id number] LAUREN Administration Aspirin 325 mg 10/22/19 09:00 10/26/19 08:39 Ecotrin PO 325 mg DAILY LAUREN Administration Atorvastatin Calcium 40 mg 10/21/19 21:00 10/25/19 21:06 Lipitor PO 40 mg HS LAUREN Administration Carvedilol 6.25 mg 10/21/19 21:00 10/26/19 08:39 Coreg PO 6.25 mg BID LAUREN Administration Cyclobenzaprine HCl 5 mg 10/21/19 21:00 10/26/19 08:39 Flexeril PO 5 mg TID LAUREN Administration Enoxaparin Sodium 40 mg 10/22/19 09:00 10/26/19 08:38 Lovenox SC 40 mg 0900 LAUREN Administration Folic Acid 1 mg 10/22/19 09:00 10/26/19 08:39 Folvite PO 1 mg DAILY LAUREN Administration Lisinopril 20 mg 10/22/19 09:00 10/26/19 08:39 Zestril PO 20 mg DAILY LAUREN Administration Mupirocin 0 gm 10/23/19 21:00 10/26/19 08:44 Bactroban 2% Ointment TOP 1 applic TID LAUREN Administration Pantoprazole Sodium 40 mg 10/22/19 09:00 10/26/19 08:39 Protonix PO 40 mg DAILY LAUREN Administration Sodium Chloride 10 ml 10/21/19 18:42 10/23/19 08:47 Flush - Normal Saline IVF 10 ml PRN PRN Administration Saline Flush Tamsulosin HCl 0.4 mg 10/22/19 09:00 10/26/19 08:39 Flomax PO 0.4 mg DAILY LAUREN Administration - Exam General Appearance: awake alert Eye: PERRL, anicteric sclera ENT: normocephalic atraumatic, no oropharyngeal lesions Neck: supple Heart: RRR Respiratory: CTAB Gastrointestinal: soft Extremities: no cyanosis, no clubbing Skin: normal turgor Neurological: hemiplegia, speech deficit Neurological - other findings: left hemiparesis, left dysmetria, left focal paraesthesias Hosp A/P (1) CVA (cerebral vascular accident) Code(s): I63.9 - CEREBRAL INFARCTION, UNSPECIFIED Status: Acute (2) Left-sided weakness Code(s): R53.1 - WEAKNESS Status: Acute (3) Dysphagia Code(s): R13.10 - DYSPHAGIA, UNSPECIFIED Status: Chronic (4) Hypertension Code(s): I10 - ESSENTIAL (PRIMARY) HYPERTENSION Status: Chronic (5) Tobacco abuse Code(s): Z72.0 - TOBACCO USE Status: Chronic (6) Dehydration Code(s): E86.0 - DEHYDRATION Status: Acute - Plan PT/OT, speech therapy, out of bed/ambulate 59 year old with left sided weakness and incoordination. He does have vascular risk factors and imaging consistent with stroke. MRI Brain reviewed which was consistent with acute right thalamic infarction. Echo showed [id number]%. CTA of neck reviewed which was negative for hemodynamically significant stenosis. Neurochecks every 4 hours. Aspirin and high intensity statin for secondary stroke prevention. Continue home medications. PT/OT/Speech Telemetry. Strict control of BP and BG. Continue medical management per primary team. Plan discussed in detail with the patient and the floor team.
[2019-10-26] MEDS: Atorvastatin Calcium 40 MG TAB PO SCH (20:53)
[2019-10-27] MEDS: PROVENTIL INHALER 6.7 G (200 INHALATIONS) INH SCH ×3 (06:25→18:52)
[2019-10-27] MEDS: Folic Acid 1 MG TAB PO SCH (09:21)
[2019-10-27] MEDS: Tamsulosin HCl 0.4 MG CAP PO SCH (09:21)
[2019-10-27] MEDS: Acetaminophen 325 MG TAB PO PRN ×2 (09:21→16:49)
[2019-10-27] MEDS: Aspirin 325 mg Enteric Coated Tablet PO SCH (09:21)
[2019-10-27] MEDS: Lisinopril 20 MG TAB PO SCH (09:22)
[2019-10-27] MEDS: Carvedilol 6.25 MG TAB PO SCH (09:22)
[2019-10-27] MEDS: Mupirocin 2% Ointment 22 GM Tube TOP SCH ×2 (09:23→16:49)
[2019-10-27] MEDS: Enoxaparin Sodium 40 MG/0.4 ML SYRINGE SC SCH (09:23)
[2019-10-27] MEDS: Cyclobenzaprine 10 MG TAB PO SCH ×2 (09:23→16:49)
--- NOTE | 2019-10-27 09:46 | PDOC.HOSPP ---
- Subjective Encounter Date: 10/26/19 Encounter Time: 10:30 Subjective: pt up in bed no complains - Objective Vital Signs & Weight: Vital Signs (12 hours) Temp Pulse Resp BP BP Pulse Ox 10/27/19 09:22 136/74 10/27/19 06:25 73 16 92 L 10/27/19 04:00 98.3 F 72 18 108/57 L 96 10/27/19 00:00 98.3 F 71 18 127/77 96 10/26/19 23:56 16 Weight Weight 208 lb 11.2 oz I&O: 10/26/19 10/27/19 10/28/19 06:59 06:59 06:59 Intake Total 1500 Balance 1500 Result Diagrams: 10/24/19 09:19 10/24/19 09:19 Hospitalist ROS - Review of Systems Cardiovascular: denies: chest pain, palpitations, orthopnea, paroxysmal noc. dyspnea, edema, light headedness, other Gastrointestinal: denies: nausea, vomiting, abdominal pain, diarrhea, constipation, melena, hematochezia, other Genitourinary: denies: dysuria, frequency, incontinence, hematuria, retention, other - Medication Medications: Active Medications Generic Name Dose Route Start Last Admin Trade Name Freq PRN Reason Stop Dose Admin Acetaminophen 650 mg 10/21/19 18:42 10/27/19 09:21 Tylenol PO 650 mg Q4H PRN Administration Headache/Fever/Mild Pain (1-3) Albuterol Sulfate 2 puff 10/21/19 19:00 10/27/19 06:25 Proventil Hfa INH 2 puff [id number] LAUREN Administration Aspirin 325 mg 10/22/19 09:00 10/27/19 09:21 Ecotrin PO 325 mg DAILY LAUREN Administration Atorvastatin Calcium 40 mg 10/21/19 21:00 10/26/19 20:53 Lipitor PO 40 mg HS LAUREN Administration Carvedilol 6.25 mg 10/21/19 21:00 10/27/19 09:22 Coreg PO 6.25 mg BID LAUREN Administration Cyclobenzaprine HCl 5 mg 10/21/19 21:00 10/27/19 09:23 Flexeril PO 5 mg TID LAUREN Administration Enoxaparin Sodium 40 mg 10/22/19 09:00 10/27/19 09:23 Lovenox SC 40 mg 0900 LAUREN Administration Folic Acid 1 mg 10/22/19 09:00 10/27/19 09:21 Folvite PO 1 mg DAILY LAUREN Administration Lisinopril 20 mg 10/22/19 09:00 10/27/19 09:22 Zestril PO 20 mg DAILY LAUREN Administration Mupirocin 0 gm 10/23/19 21:00 10/27/19 09:23 Bactroban 2% Ointment TOP 1 applic TID LAUREN Administration Pantoprazole Sodium 40 mg 10/22/19 09:00 10/27/19 09:21 Protonix PO 40 mg DAILY LAUREN Administration Sodium Chloride 10 ml 10/21/19 18:42 10/23/19 08:47 Flush - Normal Saline IVF 10 ml PRN PRN Administration Saline Flush Tamsulosin HCl 0.4 mg 10/22/19 09:00 10/27/19 09:21 Flomax PO 0.4 mg DAILY LAUREN Administration - Exam Neck: negative: supple, symmetric, no JVD, no thyromegaly, no lymphadenopathy, no carotid bruit, JVD Heart: negative: RRR, no murmur, no gallops, no rubs, normal peripheral pulses, irregular, diminshed peripheral pulses, murmur present, II/IV, III/IV Respiratory: negative: CTAB, no wheezes, no rales, no ronchi, normal chest expansion, no tachypnea, normal percussion, rales, rhonchi, tachypneic, wheezes Hosp A/P (1) Left-sided weakness Code(s): R53.1 - WEAKNESS Status: Acute (2) Dysphagia Code(s): R13.10 - DYSPHAGIA, UNSPECIFIED Status: Chronic (3) Hypertension Code(s): I10 - ESSENTIAL (PRIMARY) HYPERTENSION Status: Chronic (4) Tobacco abuse Code(s): Z72.0 - TOBACCO USE Status: Chronic (5) Dehydration Code(s): E86.0 - DEHYDRATION Status: Acute - Plan pt on asa/stain. MRI indicated right thalamic stroke. pt will need rehab. pt has small pimple to left flank area will order topical bactroban. 10/23 pt will need snf. He feels well today. will continue asa/stain for now. Pt still weak and lives alone. 6/15 pt up in bed educated to eat slowly. will continue asa/statin 10/25 pt up in bed no complains. waiting for placement.
[2019-10-27 19:42] VITALS: BP 108/70; TEMP 97.9
--- NOTE | 2019-10-28 03:29 | DIS ---
DATE OF ADMISSION: 10/21/2019 DATE OF DISCHARGE: 10/27/2019 DISCHARGE DIAGNOSES: As of the followin. Acute stroke to the right thalamus. 2. Left-sided weakness. 3. Dysphagia. 4. Hypertension. 5. Tobacco abuse. 6. Dehydration, resolved. HOSPITAL COURSE: The patient is 59-year-old male, who initially presented to the hospital with left-sided weakness. At this time, he underwent a CT angiography, which indicated no evidence for hemodynamically significant stenosis of the arteries of the neck. He was seen by Neurology, underwent a brain MRI which indicated recent lacunar infarct in the right thalamus. He also had an echocardiogram, which indicated an EF 40% to 45% with left atrium moderately to severely dilated. He was sinus rhythm throughout the hospital stay. At this time, he was put on aspirin and statin. The patient's symptoms improved. He was discharged to rehab with folic acid 1 p.o. daily, lisinopril 20 mg daily, Coreg 6.25 twice a day, Tamsulosin 0.4 mg daily, atorvastatin 40 mg at bedtime, aspirin 325 daily. PHYSICAL EXAMINATION: VITAL SIGNS: Temperature of 97.8, 65, , 95% on room air 120/70. GENERAL: He is awake, alert, and oriented x3. Does not appear in distress. CV: S1, S2 present. No murmurs, rubs, gallops. ABDOMEN: Soft, nontender. Bowel sounds present x2. EXTREMITIES: No edema. The patient has been ambulating with a walker. He will be discharged to inpatient rehab. Follow up with primary and also with Neurology. ASSESSMENT AND PLAN: The patient has been having some difficulty at times with certain foods, especially with hard meats and dry food. He states that at times he feels like he is choking. I have advised him to eat slowly and make sure that his food has enough gravy when he eats them and also chews his food appropriately. He might require an outpatient GI consultation or even a modified barium swallow, if his symptoms continue to worsen. Job ID: [id number]
--- NOTE | 2019-10-30 13:01 | EKG ---
Test Reason : Blood Pressure : / mmHG Vent. Rate : 063 BPM Atrial Rate : 063 BPM P-R Int : 134 ms QRS Dur : 080 ms QT Int : 450 ms P-R-T Axes : 083 026 -28 degrees QTc Int : 460 ms Normal sinus rhythm Nonspecific T wave abnormality Abnormal ECG Confirmed by TUCKER GALLEGOS DO ([id number]), acquisitions editor REINALDO NOONAN ([id number]) on 10/30/2019 1:00:32 PM Referred By: Confirmed By:TUCKER GALLEGOS DO
== END 2019-10-27 20:20 | DRG 65 ==
LOC: ERS 12:30 → OBSVTOIN 15:53 → 2SE 15:53
PROVIDERS: ADMIT Internal Medicine; ATTEND Internal Medicine
DX: I63.89 Other cerebral infarction (principal); G81.94 Hemiplegia, unspecified affecting left nondominant side; R40.2412 Glasgow coma scale score 13-15, at arrival to emergency department; R29.702 NIHSS score 2; I11.0 Hypertensive heart disease with heart failure; I50.9 Heart failure, unspecified; J45.909 Unspecified asthma, uncomplicated; F41.9 Anxiety disorder, unspecified; F32.9 Major depressive disorder, single episode, unspecified; R27.0 Ataxia, unspecified; I25.10 Atherosclerotic heart disease of native coronary artery without angina pectoris; R13.10 Dysphagia, unspecified; E86.0 Dehydration; K21.9 Gastro-esophageal reflux disease without esophagitis; Z96.643 Presence of artificial hip joint, bilateral; Z79.899 Other long term (current) drug therapy; Z95.1 Presence of aortocoronary bypass graft; Z90.49 Acquired absence of other specified parts of digestive tract; Z79.51 Long term (current) use of inhaled steroids
CPT/HCPCS: 36415; 70450; 70498; 70551; 71045; 80048; 80053; 80061; 81003; 81015; 85025; 85610; 85730; 93005; 93306; J1650; Q9967

== ENCOUNTER 2020-05-04 16:05 | Emergency (ER) | payer OTHER ==
[2020-05-04] MEDS ORDERED: Morphine 4 MG/ML VIAL ONE (17:01)
--- NOTE | 2020-05-04 17:25 | RAD ---
Radiograph right hip 2 views: HISTORY: 60-year-old male with acute right hip traumatic pain after fall FINDINGS: Total hip replacement arthroplasty hardware. No evidence of hardware loosening of acetabular cup or f emoral stem. No dislocation. No acute fracture identified. IMPRESSION: Status post total right hip replacement arthroplasty. No acute complications
--- NOTE | 2020-05-04 18:36 | CT ---
CT ABDOMEN WITH CONTRAST CT PELVIS WITH CONTRAST CT LUMBAR SPINE: (Trauma protocol) DATE: 05/04/2020 HISTORY: Trauma to the abdomen and pelvis TECHNIQUE: IV injection of iodinated contrast media: Administered Oral contrast media: Not administered FINDINGS: Liver: No laceration Spleen: No laceration Pancreas: No surrounding fluid or fat stranding. Kidneys: No hydronephrosis or laceration. There are 2 moderately low density lesions cortical lesions in the right kidney, one at mid pole and the other at lower pole, each approximately 2 cm, and each with density of approximately 17-20 Hounsfield units. Bladder: No gross evidence of rupture. Abdominal aorta: No dissection or rupture. Small bowel: No dilation. Colon: No adjacent fat stranding. Free air: None. Free fluid: None. Pelvic bones: No displaced acute fracture identified. Lumbar spine: No acute compression fracture. Total hip TR J hardware bilaterally. No signs of loosening or dislocation. However, the severe streak artifact caused by the hardware does obscure portions of bones, especially bilateral acetabula. There is a large 14 x 6.5 x 16 cm soft tissue hematoma within the subcutaneous fat broadly abutting t he right gluteus jen muscle. That muscle itself is probably also involved with hematoma. IMPRESSION: 1.) Large 16 cm right gluteal superficial soft tissue hematoma. 2) no fracture. 3) No evidence of acute traumatic injury within the abdominal cavity or pelvic cavity. 4) status post bilateral total hip replacement arthroplasty. 5) 2 separate right renal lesions, 2 cm in size each. They are favored to represent hemorrhagic renal cysts, and less likely to represent neoplasms. Recommend further evaluation with renal ultrasound on a nonemergent basis.
--- NOTE | 2020-05-04 18:51 | CT ---
CT OF THE RIGHT LOWER EXTREMITY WITH IV CONTRAST: 05/04/20 INDICATION: History of right hip pain and swelling in the right buttock region. FINDINGS: There is a large 2.8 x 11 x 8.3 cm hematoma within subcutaneous tissues overlying the right gluteus m aximus. There is some surrounding inflammatory changes seen near this region. There is a right total hip prosthesis that projects in the expected position. No acute fracture is evident. No enlarged lymp h nodes are evident. The visualized intrapelvic contents reveal no definite acute abnormality. There are prostatic calcifications. IMPRESSION: 1. Large right gluteal region hematoma. Recommend clinical follow-up. Ultrasound follow-up may b e helpful to document complete resolution. 2. Right total hip prosthesis. 3. No definite acute osseous abnormality. POS: BH
== END 2020-05-04 19:15 | disposition home or self-care (01) ==
LOC: ERS 16:05
DX: S70.01XA Contusion of right hip, initial encounter (principal); S30.0XXA Contusion of lower back and pelvis, initial encounter; E78.5 Hyperlipidemia, unspecified; E78.00 Pure hypercholesterolemia, unspecified; I10 Essential (primary) hypertension; F17.210 Nicotine dependence, cigarettes, uncomplicated; Z79.899 Other long term (current) drug therapy; W19.XXXA Unspecified fall, initial encounter
CPT/HCPCS: 74177; 96374; J2270

== ENCOUNTER 2020-08-19 21:24 | Observation (INO) | payer OTHER ==
[2020-08-19 22:14] LABS: Hemoglobin 13.5 g/dL (14.0-18.0); Mean Corpuscular HGB CONC 34.1 g/dL (32.0-36.0); Mean Corpuscular Hemoglobin 30.6 pg (27.0-31.0); Mean Corpuscular Volume 89.6 fL (78.0-98.0); Mean Platelet Volume 8.3 fL (7.4-10.4); Platelet Count 202 thou/uL (130-400); RBC Distribution Width 13.8 % (11.5-14.5); Red Blood Cell (RBC) Count 4.42 mill/uL (4.70-6.10); White Blood Cell (WBC) Count 6.5 thou/uL (4.8-10.8)
[2020-08-19 22:27] LABS: ALT (SGPT) 10 U/L (8-55); AST (SGOT) 15 U/L (5-34); Albumin 3.7 g/dL (3.4-4.8); Alkaline Phosphatase 96 U/L (40-110); Anion Gap 13 mmol/L (10-20); BUN (Urea Nitrogen) 15 mg/dL (8.4-25.7); Bilirubin, Total 0.3 mg/dL (0.2-1.2); Calc. Creatinine Clearance 0 mL/min (70-130); Calcium 8.2 mg/dL (7.8-10.44); Carbon Dioxide 25 mmol/L (23-31); Chloride 102 mmol/L (98-107); Globulin 2.5 g/dL (2.4-3.5); Glucose 111 mg/dL (80-115); Potassium 3.7 mmol/L (3.5-5.1); Protein, Total 6.2 g/dL (5.8-8.1); Sodium 136 mmol/L (136-145)
[2020-08-19 23:04] LABS: Band 5 % (5-11); Eosinophils 5 % (0-10); Lymphocytes 30 % (21-51); MDiff Complete? YES; Monocytes 12 % (0-10); Neutrophil 48 % (42-75)
[2020-08-19] MEDS ORDERED: Aspirin Chewable 81 MG TAB ONE (23:58)
[2020-08-20 01:24] LABS: Troponin I Less than 0.010 ng/mL (< 0.028)
[2020-08-20] MEDS ORDERED: Ondansetron PF 4 MG/2 ML Vial IVP PRN (02:00)
[2020-08-20] MEDS ORDERED: Acetaminophen 325 MG TAB PO PRN (02:00)
[2020-08-20] MEDS ORDERED: Ondansetron ODT 4 MG TAB SL PRN (02:00)
[2020-08-20 02:04] VITALS: BMI 29.5
[2020-08-20] MEDS ORDERED: Morphine 2 MG/ML VIAL SLOW IVP PRN (03:38)
[2020-08-20] MEDS ORDERED: Nitroglycerin 0.4 MG TAB (25 Tab Bottle) SL PRN (03:39)
[2020-08-20] MEDS ORDERED: Nitroglycerin 2% Ointment 1 INCH/1 GM Packet TOP SCH ×2 (04:00→09:00)
[2020-08-20 05:13] LABS: Troponin I Less than 0.010 ng/mL (< 0.028)
[2020-08-20] MEDS ORDERED: Aspirin 325 MG TAB PO SCH (08:00)
[2020-08-20 08:48] LABS: SARS-CoV-2 PCR by NAA Not Detected (NotDetected)
[2020-08-20] MEDS ORDERED: Albuterol Sulfate 2.5 mg/3 ml Neb NEB PRN (09:46)
[2020-08-20] MEDS: Lidocaine 5% Patch TD SCH (10:30)
[2020-08-20] MEDS ORDERED: Carvedilol 6.25 MG TAB PO SCH (10:30)
[2020-08-20] MEDS ORDERED: Iopamidol-370 76% 500 ML 1 ML ONE (11:40)
[2020-08-20] MEDS: Calcium Carbonate 500 MG ChewTAB PO PRN ×2 (14:27→18:06)
[2020-08-20] MEDS: Carvedilol 6.25 MG TAB PO SCH (16:39)
[2020-08-20] MEDS ORDERED: Atorvastatin Calcium 40 MG TAB PO SCH (21:00)
[2020-08-20] MEDS ORDERED: Transdermal Patch Removal TOP SCH (23:00)
[2020-08-21] MEDS ORDERED: Acetaminophen 325 MG TAB PO PRN (01:59)
[2020-08-21 06:01] LABS: #Eosinphils 0.4 thou/uL (0.0-0.7); #Lymphocytes 1.5 thou/uL (1.20-3.40); #Monocytes 0.7 thou/uL (0.11-0.59); #Neutrophils 2.9 thou/uL (1.40-6.50); %Basophils 0.7 % (0.0-1.0); %Eosinophils 7.1 % (0.0-10.0); %Lymphocytes 26.9 % (21.0-51.0); %Monocytes 12.9 % (0.0-10.0); %Neutrophils 52.4 % (42.0-75.0); Hemoglobin 13.2 g/dL (14.0-18.0); Mean Corpuscular HGB CONC 33.1 g/dL (32.0-36.0); Mean Corpuscular Hemoglobin 29.8 pg (27.0-31.0); Mean Corpuscular Volume 89.9 fL (78.0-98.0); Mean Platelet Volume 8.5 fL (7.4-10.4); Platelet Count 201 thou/uL (130-400); RBC Distribution Width 13.8 % (11.5-14.5); Red Blood Cell (RBC) Count 4.45 mill/uL (4.70-6.10); White Blood Cell (WBC) Count 5.4 thou/uL (4.8-10.8)
[2020-08-21 06:18] LABS: Anion Gap 15 mmol/L (10-20); BUN (Urea Nitrogen) 11 mg/dL (8.4-25.7); Calc. Creatinine Clearance 139 mL/min (70-130); Calcium 8.6 mg/dL (7.8-10.44); Carbon Dioxide 20 mmol/L (23-31); Chloride 102 mmol/L (98-107); Glucose 90 mg/dL (80-115); Potassium 3.5 mmol/L (3.5-5.1); Sodium 133 mmol/L (136-145)
[2020-08-21] MEDS ORDERED: Aspirin 325 MG TAB PO SCH (08:00)
[2020-08-21] MEDS ORDERED: Tamsulosin HCl 0.4 MG CAP PO SCH (09:00)
[2020-08-21] MEDS ORDERED: Lisinopril 20 MG TAB PO SCH (09:00)
[2020-08-21] MEDS: Carvedilol 6.25 MG TAB PO SCH (11:18)
[2020-08-21] MEDS ORDERED: ADENOSINE 60 MG/20 ML VIAL ONE (11:24)
[2020-08-21 11:39] VITALS: TEMP 96.7
[2020-08-21] MEDS ORDERED: PROPOFOL 200 MG/20 ML VIAL ONE (12:08)
[2020-08-21] MEDS ORDERED: Promethazine HCl 25 MG/ML VIAL SLOW IVP PRN (12:42)
[2020-08-21] MEDS ORDERED: Promethazine HCl 25 MG/ML VIAL IM PRN (12:42)
[2020-08-21] MEDS ORDERED: Ondansetron HCl/PF 4 MG/2 ML Vial IVP PRN (12:42)
[2020-08-21 13:27] VITALS: BP 93/63
[2020-08-21] MEDS: Lidocaine 5% Patch TD SCH (13:31)
== END 2020-08-21 14:38 | disposition home or self-care (01) ==
LOC: ERS 21:24 → 2SW 08-20 00:43
PROVIDERS: ADMIT Student in an Organized Health Care Education/Training Program; ATTEND Internal Medicine
PROC: 0DB98ZX Excision of Duodenum, Via Natural or Artificial Opening Endoscopic, Diagnostic (ICD-10-PCS; principal; 2020-08-21)
PROC: 0DB38ZX Excision of Lower Esophagus, Via Natural or Artificial Opening Endoscopic, Diagnostic (ICD-10-PCS; 2020-08-21)
DX: K22.10 Ulcer of esophagus without bleeding (principal); K26.9 Duodenal ulcer, unspecified as acute or chronic, without hemorrhage or perforation; K44.9 Diaphragmatic hernia without obstruction or gangrene; R13.19 Other dysphagia; R07.89 Other chest pain; I63.9 Cerebral infarction, unspecified; I25.10 Atherosclerotic heart disease of native coronary artery without angina pectoris; I10 Essential (primary) hypertension; M10.9 Gout, unspecified; E78.5 Hyperlipidemia, unspecified; M25.551 Pain in right hip; S70.01XA Contusion of right hip, initial encounter; Z87.891 Personal history of nicotine dependence; Z86.73 Personal history of transient ischemic attack (TIA), and cerebral infarction without residual deficits; Z79.82 Long term (current) use of aspirin; Z79.899 Other long term (current) drug therapy; Z95.1 Presence of aortocoronary bypass graft; Z96.641 Presence of right artificial hip joint; Z20.822 Contact with and (suspected) exposure to COVID-19
CPT/HCPCS: 36415; 70450; 70551; 71045; 71275; 72125; 78452; 80048; 80053; 82550; 83880; 84484; 85025; 85379; 87635; 88305; 93005; 93017; 93306; 93880; A9500; G0378; J0153; J2704; Q9967; U0003; U0005

== ENCOUNTER 2020-11-09 06:47 | Outpatient (CLI) | payer OTHER | END 2020-11-09 06:48 | disposition home or self-care (01) | LOC: NM 06:47 | PROVIDERS: ATTEND Internal Medicine | DX: K21.9 Gastro-esophageal reflux disease without esophagitis (principal) | CPT/HCPCS: 78264; A9541 ==

== ENCOUNTER 2020-12-05 03:17 | Inpatient (IN) | payer OTHER ==
[2020-12-05] MEDS ORDERED: Nitroglycerin 0.4 MG TAB 1 EACH ONE (03:34)
[2020-12-05 03:57] LABS: #Basophils 0.1 thou/uL (0.0-0.2); #Eosinphils 0.5 thou/uL (0.0-0.7); #Lymphocytes 1.9 thou/uL (1.20-3.40); #Monocytes 0.7 thou/uL (0.11-0.59); #Neutrophils 3.7 thou/uL (1.40-6.50); %Basophils 0.9 % (0.0-1.0); %Eosinophils 7.5 % (0.0-10.0); %Lymphocytes 27.6 % (21.0-51.0); %Monocytes 10.6 % (0.0-10.0); %Neutrophils 53.4 % (42.0-75.0); Hemoglobin 13.8 g/dL (14.0-18.0); Mean Corpuscular HGB CONC 33.6 g/dL (32.0-36.0); Mean Corpuscular Hemoglobin 31.2 pg (27.0-31.0); Mean Corpuscular Volume 92.9 fL (78.0-98.0); Mean Platelet Volume 8.6 fL (7.4-10.4); Platelet Count 237 thou/uL (130-400); RBC Distribution Width 13.6 % (11.5-14.5); Red Blood Cell (RBC) Count 4.42 mill/uL (4.70-6.10)
[2020-12-05 04:18] LABS: ALT (SGPT) 9 U/L (8-55); AST (SGOT) 20 U/L (5-34); Albumin 3.9 g/dL (3.4-4.8); Alkaline Phosphatase 94 U/L (40-110); Anion Gap 13 mmol/L (10-20); BUN (Urea Nitrogen) 18 mg/dL (8.4-25.7); Bilirubin, Total 0.4 mg/dL (0.2-1.2); Calc. Creatinine Clearance 0 mL/min (70-130); Calcium 9.3 mg/dL (7.8-10.44); Carbon Dioxide 21 mmol/L (23-31); Chloride 104 mmol/L (98-107); Globulin 3.2 g/dL (2.4-3.5); Glucose 101 mg/dL (80-115); Lipase 46 U/L (8-78); Potassium 3.9 mmol/L (3.5-5.1); Protein, Total 7.1 g/dL (5.8-8.1); Sodium 134 mmol/L (136-145)
[2020-12-05] MEDS ORDERED: Nitroglycerin 2% Ointment 1 INCH/1 GM Packet ONE (05:10)
[2020-12-05] MEDS ORDERED: Ketorolac Tromethamine 30 MG/ML VIAL ONE (05:54)
[2020-12-05 07:20] LABS: Troponin I Less than 0.010 ng/mL (< 0.028)
[2020-12-05] MEDS ORDERED: Senokot S 8.6-50 MG TAB PO PRN (08:55)
[2020-12-05] MEDS ORDERED: Ondansetron ODT 4 MG TAB PO PRN (08:55)
[2020-12-05 09:15] LABS: Troponin I Less than 0.010 ng/mL (< 0.028)
[2020-12-05] MEDS: Lisinopril 10 MG TAB PO SCH (10:15)
[2020-12-05] MEDS: Folic Acid 1 MG TAB PO SCH (10:15)
[2020-12-05] MEDS: Tamsulosin HCl 0.4 MG CAP PO SCH (10:15)
[2020-12-05] MEDS: Cyclobenzaprine 10 MG TAB PO SCH ×3 (10:15→20:05)
[2020-12-05] MEDS: Aspirin 81 mg Enteric Coated Tablet PO SCH (10:15)
[2020-12-05] MEDS ORDERED: Cyclobenzaprine 10 MG TAB ONE (10:28)
[2020-12-05] MEDS ORDERED: Aspirin Chewable 81 MG TAB ONE (10:28)
[2020-12-05] MEDS ORDERED: Lisinopril 10 MG TAB ONE (10:28)
[2020-12-05] MEDS ORDERED: Folic Acid 1 MG TAB ONE (10:28)
[2020-12-05] MEDS ORDERED: Metoprolol Tartrate 5 MG/5 ML VIAL IVP PRN (11:17)
[2020-12-05 12:19] LABS: SARS-CoV-2 PCR by NAA Not Detected (NotDetected)
[2020-12-05] MEDS: Albuterol Sulfate 2.5 mg/3 ml Neb NEB SCH ×3 (12:20→23:27)
[2020-12-05] MEDS ORDERED: Albuterol Sulfate 2.5 mg/3 ml Neb ONE (12:22)
[2020-12-05 15:10] VITALS: BMI 31.2
[2020-12-05] MEDS: Carvedilol 6.25 MG TAB PO SCH (16:47)
[2020-12-05] MEDS: Acetaminophen 325 MG TAB PO PRN (17:12)
[2020-12-05] MEDS: Atorvastatin Calcium 40 MG TAB PO SCH ×2 (20:05→20:06)
[2020-12-06] MEDS: Acetaminophen 325 MG TAB PO PRN (03:07)
[2020-12-06 05:21] LABS: Band 2 % (5-11); Eosinophils 6 % (0-10); Hemoglobin 12.9 g/dL (14.0-18.0); Hypochromia SLIGHT = 6-15 cells (100X) (0-5/hpf); Lymphocytes 22 % (21-51); MDiff Complete? YES; Mean Corpuscular Hemoglobin 30.9 pg (27.0-31.0); Mean Corpuscular Volume 93.5 fL (78.0-98.0); Mean Platelet Volume 8.7 fL (7.4-10.4); Monocytes 4 % (0-10); Neutrophil 60 % (42-75); Platelet Count 215 thou/uL (130-400); Platelet Morphology Comment Appears Adequate; RBC Distribution Width 13.6 % (11.5-14.5); Reactive Lymphocytes 6 % (0-10); Red Blood Cell (RBC) Count 4.18 mill/uL (4.70-6.10); White Blood Cell (WBC) Count 5.2 thou/uL (4.8-10.8)
[2020-12-06 05:35] LABS: ALT (SGPT) 10 U/L (8-55); AST (SGOT) 15 U/L (5-34); Albumin 3.4 g/dL (3.4-4.8); Alkaline Phosphatase 87 U/L (40-110); Anion Gap 11 mmol/L (10-20); BUN (Urea Nitrogen) 19 mg/dL (8.4-25.7); Bilirubin, Total 0.6 mg/dL (0.2-1.2); Calc. Creatinine Clearance 123 mL/min (70-130); Calcium 8.9 mg/dL (7.8-10.44); Carbon Dioxide 23 mmol/L (23-31); Chloride 104 mmol/L (98-107); Globulin 2.9 g/dL (2.4-3.5); Glucose 92 mg/dL (80-115); Potassium 4.1 mmol/L (3.5-5.1); Protein, Total 6.3 g/dL (5.8-8.1); Sodium 134 mmol/L (136-145)
[2020-12-06] MEDS: Albuterol Sulfate 2.5 mg/3 ml Neb NEB SCH ×4 (08:53→23:46)
[2020-12-06] MEDS ORDERED: Prevnar 13-Val Conj/PF 0.5 ML SYRINGE IM ONE (09:00)
[2020-12-06] MEDS ORDERED: Enoxaparin Sodium 40 MG/0.4 ML SYRINGE SC SCH (09:00)
[2020-12-06] MEDS: Aspirin 81 mg Enteric Coated Tablet PO SCH (09:21)
[2020-12-06] MEDS: Cyclobenzaprine 10 MG TAB PO SCH ×3 (09:21→21:01)
[2020-12-06] MEDS: Tamsulosin HCl 0.4 MG CAP PO SCH (09:22)
[2020-12-06] MEDS: Folic Acid 1 MG TAB PO SCH (09:22)
[2020-12-06] MEDS: Lisinopril 10 MG TAB PO SCH (09:29)
[2020-12-06] MEDS: Carvedilol 6.25 MG TAB PO SCH ×2 (09:29→18:08)
[2020-12-06 14:08] LABS: Amphetamine Not Detected (NotDetected); Barbiturates Screen Not Detected (NotDetected); Benzodiazepine Screen Not Detected (NotDetected); Cocaine Metabolite Screen Not Detected (NotDetected); Methadone Not Detected (NotDetected); Methamphetamine Not Detected (NotDetected); Opiate Screen Not Detected (NotDetected); Oxycodone Screen Not Detected (NotDetected); Phencyclidine (PCP) Not Detected (NotDetected); THC/Cannabinoid Screen Not Detected (NotDetected); Tricyclic Screen Not Detected (NotDetected)
[2020-12-06] MEDS ORDERED: Communication Order-Pharmacy FS SCH (17:15)
[2020-12-07] MEDS: Carvedilol 6.25 MG TAB PO SCH ×2 (05:34→18:21)
[2020-12-07] MEDS: Aspirin 81 mg Enteric Coated Tablet PO SCH (05:34)
[2020-12-07] MEDS: Cyclobenzaprine 10 MG TAB PO SCH ×3 (05:34→21:57)
[2020-12-07] MEDS: Lisinopril 10 MG TAB PO SCH (05:35)
[2020-12-07] MEDS: Tamsulosin HCl 0.4 MG CAP PO SCH (05:35)
[2020-12-07] MEDS: Folic Acid 1 MG TAB PO SCH (05:35)
[2020-12-07] MEDS: Sodium Chloride 0.9% 1,000 ML IV SCH ×2 (05:46→18:23)
[2020-12-07 06:16] LABS: Cardiac Risk 2.6 (Less than 4.5)
[2020-12-07] MEDS: Albuterol Sulfate 2.5 mg/3 ml Neb NEB SCH ×3 (07:22→20:01)
[2020-12-07] MEDS ORDERED: Heparin 10,000 UNITS/ 10 ML VIAL ONE (07:50)
[2020-12-07] MEDS ORDERED: Lidocaine 1% (PF) 30 ML VIAL ONE (07:50)
[2020-12-07] MEDS ORDERED: Fentanyl 100 MCG/2 ML VIAL ONE (08:12)
[2020-12-07] MEDS ORDERED: Midazolam HCl 2 mg/2 ml Vial ONE (08:12)
[2020-12-07] MEDS ORDERED: Bivalirudin 250 MG VIAL ONE (08:58)
[2020-12-07] MEDS ORDERED: Nitroglycerin 0.4 MG TAB (25 Tab Bottle) SL PRN (09:44)
[2020-12-07] MEDS ORDERED: Iopamidol 370 76% 100 ML VIAL ONE (10:33)
[2020-12-07] MEDS ORDERED: Iopamidol 370 76% 50 ML VIAL FS ONE (10:33)
[2020-12-07] MEDS ORDERED: traMADol HCl 50 MG TAB PO PRN (14:17)
[2020-12-07] MEDS ORDERED: Atorvastatin Calcium 40 MG TAB PO SCH (21:00)
[2020-12-08] MEDS: Albuterol Sulfate 2.5 mg/3 ml Neb NEB SCH ×2 (01:36→06:51)
[2020-12-08 05:21] LABS: #Eosinphils 0.3 thou/uL (0.0-0.7); #Lymphocytes 1.6 thou/uL (1.20-3.40); #Monocytes 0.8 thou/uL (0.11-0.59); #Neutrophils 3.6 thou/uL (1.40-6.50); %Basophils 0.5 % (0.0-1.0); %Eosinophils 5.3 % (0.0-10.0); %Lymphocytes 24.5 % (21.0-51.0); %Monocytes 13.1 % (0.0-10.0); %Neutrophils 56.6 % (42.0-75.0); Hemoglobin 13.1 g/dL (14.0-18.0); Mean Corpuscular HGB CONC 34.6 g/dL (32.0-36.0); Mean Corpuscular Hemoglobin 32.2 pg (27.0-31.0); Mean Corpuscular Volume 93.1 fL (78.0-98.0); Mean Platelet Volume 8.8 fL (7.4-10.4); Platelet Count 217 thou/uL (130-400); RBC Distribution Width 13.4 % (11.5-14.5); Red Blood Cell (RBC) Count 4.08 mill/uL (4.70-6.10); White Blood Cell (WBC) Count 6.3 thou/uL (4.8-10.8)
[2020-12-08 05:45] LABS: ALT (SGPT) 7 U/L (8-55); AST (SGOT) 15 U/L (5-34); Albumin 3.5 g/dL (3.4-4.8); Alkaline Phosphatase 85 U/L (40-110); Anion Gap 11 mmol/L (10-20); BUN (Urea Nitrogen) 17 mg/dL (8.4-25.7); Bilirubin, Total 0.4 mg/dL (0.2-1.2); Calc. Creatinine Clearance 113 mL/min (70-130); Calcium 8.8 mg/dL (7.8-10.44); Carbon Dioxide 23 mmol/L (23-31); Chloride 101 mmol/L (98-107); Globulin 2.8 g/dL (2.4-3.5); Glucose 102 mg/dL (80-115); Potassium 4.3 mmol/L (3.5-5.1); Protein, Total 6.3 g/dL (5.8-8.1); Sodium 131 mmol/L (136-145)
[2020-12-08 08:13] VITALS: BP 122/72; TEMP 98.3
== END 2020-12-08 08:15 | disposition left against medical advice (07) | DRG 287 ==
LOC: ERS 03:17 → ERHOLD 06:17 → 2SW 15:35 → OBSVTOIN 12-07 14:45
PROVIDERS: ADMIT Internal Medicine; ATTEND Internal Medicine
PROC: 4A023N7 Measurement of Cardiac Sampling and Pressure, Left Heart, Percutaneous Approach (ICD-10-PCS; principal; 2020-12-07)
PROC: B2151ZZ Fluoroscopy of Left Heart using Low Osmolar Contrast (ICD-10-PCS; 2020-12-07)
PROC: B2131ZZ Fluoroscopy of Multiple Coronary Artery Bypass Grafts using Low Osmolar Contrast (ICD-10-PCS; 2020-12-07)
DX: I25.119 Atherosclerotic heart disease of native coronary artery with unspecified angina pectoris (principal); Z20.822 Contact with and (suspected) exposure to COVID-19; E78.5 Hyperlipidemia, unspecified; M10.9 Gout, unspecified; I10 Essential (primary) hypertension; F17.210 Nicotine dependence, cigarettes, uncomplicated; G62.9 Polyneuropathy, unspecified; R13.10 Dysphagia, unspecified; E78.00 Pure hypercholesterolemia, unspecified; Z96.641 Presence of right artificial hip joint; Z95.1 Presence of aortocoronary bypass graft; Z79.899 Other long term (current) drug therapy; Z79.82 Long term (current) use of aspirin; Z79.51 Long term (current) use of inhaled steroids; Z53.29 Procedure and treatment not carried out because of patient's decision for other reasons
CPT/HCPCS: 36415; 36416; 71045; 80053; 80061; 80306; 83690; 84443; 84484; 85007; 85025; 85027; 85347; 93005; 93010; 93459; 93571; 94640; 96372; 96374; 99152; 99153; C1769; G0378; J0153; J0583; J1644; J1650; J1885; J2001; J2250; J3010; J7611; J7620; Q9967; U0003; U0005

== ENCOUNTER 2021-04-05 08:54 | Emergency (ER) | payer OTHER ==
[2021-04-05 09:45] LABS: #Basophils 0.1 thou/uL (0.0-0.2); #Eosinphils 0.4 thou/uL (0.0-0.7); #Lymphocytes 1.3 thou/uL (1.20-3.40); #Monocytes 0.7 thou/uL (0.11-0.59); #Neutrophils 3.9 thou/uL (1.40-6.50); %Basophils 0.8 % (0.0-1.0); %Eosinophils 5.7 % (0.0-10.0); %Lymphocytes 20.8 % (21.0-51.0); %Monocytes 11.4 % (0.0-10.0); %Neutrophils 61.3 % (42.0-75.0); Mean Corpuscular HGB CONC 33.6 g/dL (32.0-36.0); Mean Corpuscular Hemoglobin 31.5 pg (27.0-31.0); Mean Corpuscular Volume 93.9 fL (78.0-98.0); Mean Platelet Volume 8.5 fL (7.4-10.4); Platelet Count 247 thou/uL (130-400); RBC Distribution Width 14.4 % (11.5-14.5); Red Blood Cell (RBC) Count 4.75 mill/uL (4.70-6.10); White Blood Cell (WBC) Count 6.4 thou/uL (4.8-10.8)
[2021-04-05 10:03] LABS: ALT (SGPT) 12 U/L (8-55); AST (SGOT) 16 U/L (5-34); Albumin 3.8 g/dL (3.4-4.8); Alkaline Phosphatase 95 U/L (40-110); Anion Gap 12 mmol/L (10-20); BUN (Urea Nitrogen) 21 mg/dL (8.4-25.7); Bilirubin, Total 0.4 mg/dL (0.2-1.2); Calc. Creatinine Clearance 0 mL/min (70-130); Calcium 9.4 mg/dL (7.8-10.44); Carbon Dioxide 24 mmol/L (23-31); Chloride 101 mmol/L (98-107); Globulin 3.7 g/dL (2.4-3.5); Glucose 95 mg/dL (80-115); Potassium 4.5 mmol/L (3.5-5.1); Protein, Total 7.5 g/dL (5.8-8.1); Sodium 132 mmol/L (136-145)
== END 2021-04-05 10:55 | disposition home or self-care (01) ==
LOC: ERS 08:54
DX: L03.115 Cellulitis of right lower limb (principal); I10 Essential (primary) hypertension; E78.5 Hyperlipidemia, unspecified; F17.210 Nicotine dependence, cigarettes, uncomplicated; Z79.899 Other long term (current) drug therapy
CPT/HCPCS: 36415; 80053; 85025; 85652; 86140; 87040

== ENCOUNTER 2021-10-27 20:35 | Observation (INO) | payer OTHER ==
[~2021-10-27 20:35] MED LIST: ISOVUE-370 76%-LOCM 1 ML ONE
[2021-10-27] MEDS ORDERED: methylPREDNISolone Sod Succ/PF 125 MG/2 ML VIAL ONE (20:49)
[2021-10-27 21:00] LABS: #Eosinphils 0.3 thou/uL (0.0-0.7); #Lymphocytes 1.7 thou/uL (1.20-3.40); #Monocytes 0.8 thou/uL (0.11-0.59); #Neutrophils 3.4 thou/uL (1.40-6.50); %Basophils 0.6 % (0.0-1.0); %Eosinophils 4.2 % (0.0-10.0); %Lymphocytes 26.6 % (21.0-51.0); %Monocytes 13.4 % (0.0-10.0); %Neutrophils 55.3 % (42.0-75.0); Hemoglobin 12.4 g/dL (14.0-18.0); Mean Corpuscular Hemoglobin 31.9 pg (27.0-31.0); Mean Corpuscular Volume 96.7 fL (78.0-98.0); Mean Platelet Volume 7.7 fL (7.4-10.4); Platelet Count 212 thou/uL (130-400); RBC Distribution Width 13.5 % (11.5-14.5); White Blood Cell (WBC) Count 6.2 thou/uL (4.8-10.8)
[2021-10-27 21:20] LABS: ALT (SGPT) 12 U/L (8-55); AST (SGOT) 16 U/L (5-34); Albumin 3.4 g/dL (3.4-4.8); Alkaline Phosphatase 81 U/L (40-110); Anion Gap 12 mmol/L (10-20); BUN (Urea Nitrogen) 15 mg/dL (8.4-25.7); Bilirubin, Total 0.5 mg/dL (0.2-1.2); Calc. Creatinine Clearance 0 mL/min (70-130); Calcium 8.1 mg/dL (7.8-10.44); Carbon Dioxide 19 mmol/L (23-31); Chloride 106 mmol/L (98-107); Globulin 2.5 g/dL (2.4-3.5); Glucose 129 mg/dL (80-115); Lipase 55 U/L (8-78); Magnesium 1.8 mg/dL (1.6-2.6); Potassium 3.7 mmol/L (3.5-5.1); Protein, Total 5.9 g/dL (5.8-8.1); Sodium 133 mmol/L (136-145)
[2021-10-27 22:05] LABS: Bacteria/HPF None Seen HPF (None Seen); Bilirubin Negative (Negative); Blood, Urine Trace (Negative); Clarity Clear (Clear); Glucose, Urine (Dipstick) 50 mg/dL (Negative); Ketone, Urine Negative (Negative); Leukocyte 25 Leu/uL (Negative); Nitrite Negative (Negative); Protein, Urine (Dipstick) Negative (Neg-Trace); RBC/HPF 0-3 HPF (0-3); Specific Gravity, Urine 1.021 (1.002-1.036); Squamous Epithelial 0-3 HPF (0-3); Urobilinogen 3 mg/dL (Less than 2); WBC/HPF 0-3 HPF (0-3)
[2021-10-27 22:41] LABS: SARS-CoV-2 NAA Rapid Test Not Detected (NotDetected)
[2021-10-28] MEDS ORDERED: Aspirin 325 mg Enteric Coated Tablet PO SCH (01:45)
[2021-10-28] MEDS ORDERED: Acetaminophen 650 MG Suppository PR PRN (02:36)
[2021-10-28] MEDS ORDERED: Ondansetron ODT 4 MG TAB PO PRN (02:36)
[2021-10-28] MEDS ORDERED: Acetaminophen 325 MG TAB PO PRN (02:36)
[2021-10-28] MEDS ORDERED: Nitroglycerin 0.4 MG TAB (25 Tab Bottle) SL PRN (02:36)
[2021-10-28] MEDS ORDERED: Ondansetron PF 4 MG/2 ML Vial IVP PRN (02:36)
[2021-10-28 02:56] LABS: #Basophils 0.1 thou/uL (0.0-0.2); #Lymphocytes 0.4 thou/uL (1.20-3.40); #Monocytes 0.1 thou/uL (0.11-0.59); #Neutrophils 4.8 thou/uL (1.40-6.50); %Basophils 1.1 % (0.0-1.0); %Eosinophils 0.2 % (0.0-10.0); %Lymphocytes 8.2 % (21.0-51.0); %Neutrophils 89.6 % (42.0-75.0); Hemoglobin 13.6 g/dL (14.0-18.0); Mean Corpuscular HGB CONC 32.9 g/dL (32.0-36.0); Mean Corpuscular Hemoglobin 31.8 pg (27.0-31.0); Mean Corpuscular Volume 96.8 fL (78.0-98.0); Mean Platelet Volume 7.6 fL (7.4-10.4); Platelet Count 200 thou/uL (130-400); RBC Distribution Width 13.6 % (11.5-14.5); Red Blood Cell (RBC) Count 4.28 mill/uL (4.70-6.10); White Blood Cell (WBC) Count 5.4 thou/uL (4.8-10.8)
[2021-10-28 03:18] LABS: Troponin I Less than 0.010 ng/mL (< 0.028)
[2021-10-28 03:21] LABS: Anion Gap 13 mmol/L (10-20); BUN (Urea Nitrogen) 13 mg/dL (8.4-25.7); Calc. Creatinine Clearance 92 mL/min (70-130); Carbon Dioxide 21 mmol/L (23-31); Chloride 104 mmol/L (98-107); Glucose 147 mg/dL (80-115); Potassium 4.2 mmol/L (3.5-5.1); Sodium 134 mmol/L (136-145)
[2021-10-28] MEDS: methylPREDNISolone Sod Succ 40 MG VIAL IVP SCH (08:08)
[2021-10-28] MEDS: Aspirin Chewable 81 MG TAB PO SCH (08:08)
[2021-10-28] MEDS: Pantoprazole 40 MG VIAL IVP SCH ×2 (08:12→21:54)
[2021-10-28] MEDS ORDERED: Amlodipine 5 MG TAB PO SCH (14:00)
[2021-10-28] MEDS: Enoxaparin Sodium 40 MG/0.4 ML SYRINGE SC SCH (15:30)
[2021-10-28] MEDS ORDERED: Indomethacin 75 mg SR Capsule PO SCH (18:00)
[2021-10-29] MEDS ORDERED: Melatonin 3 MG TAB PO SCH (01:00)
[2021-10-29] MEDS ORDERED: Lisinopril 20 MG TAB PO SCH (09:00)
[2021-10-29] MEDS ORDERED: Amlodipine 5 MG TAB PO SCH (09:00)
[2021-10-29] MEDS ORDERED: Indomethacin 75 mg SR Capsule PO SCH (09:00)
[2021-10-29] MEDS: methylPREDNISolone Sod Succ 40 MG VIAL IVP SCH (09:34)
[2021-10-29] MEDS: Aspirin Chewable 81 MG TAB PO SCH (09:34)
[2021-10-29] MEDS: Enoxaparin Sodium 40 MG/0.4 ML SYRINGE SC SCH (09:34)
[2021-10-29] MEDS: Pantoprazole 40 MG VIAL IVP SCH (09:34)
[2021-10-29 10:36] VITALS: BMI 29.7
[2021-10-29 12:25] VITALS: TEMP 97.5
[2021-10-29] MEDS ORDERED: hydrALAZINE 25 MG TAB PO PRN (13:22)
[2021-10-29 13:50] VITALS: BP 170/82
== END 2021-10-29 13:50 | disposition home or self-care (01) ==
LOC: ERS 20:35 → 2NO 23:15
PROVIDERS: ADMIT Internal Medicine; ATTEND Internal Medicine
DX: R07.81 Pleurodynia (principal); R20.0 Anesthesia of skin; R53.1 Weakness; I25.10 Atherosclerotic heart disease of native coronary artery without angina pectoris; E78.5 Hyperlipidemia, unspecified; I10 Essential (primary) hypertension; F17.210 Nicotine dependence, cigarettes, uncomplicated; F17.290 Nicotine dependence, other tobacco product, uncomplicated; J96.01 Acute respiratory failure with hypoxia; E78.00 Pure hypercholesterolemia, unspecified; M10.9 Gout, unspecified; J45.909 Unspecified asthma, uncomplicated; I08.1 Rheumatic disorders of both mitral and tricuspid valves; Z86.73 Personal history of transient ischemic attack (TIA), and cerebral infarction without residual deficits; Z91.19 Patient's noncompliance with other medical treatment and regimen; Z79.82 Long term (current) use of aspirin; Z79.899 Other long term (current) drug therapy; Z95.1 Presence of aortocoronary bypass graft; Z20.822 Contact with and (suspected) exposure to COVID-19
CPT/HCPCS: 36415; 70450; 70551; 71045; 71275; 72141; 80048; 80053; 81003; 81015; 83690; 83735; 83880; 84484; 85025; 85379; 93306; 94640; 94760; 96372; 96374; 96375; 96376; C9113; G0378; J1650; J1956; J2920; J2930; J7620; Q9966; U0002

== ENCOUNTER 2021-12-21 12:43 | Observation (INO) | payer OTHER ==
[~2021-12-21 12:43] MED LIST changes: -ISOVUE-370 76%-LOCM 1 ML ONE; +Iopamidol-370 76% 500 ML 1 ML ONE
[2021-12-21 13:07] LABS: #Eosinphils 0.4 thou/uL (0.0-0.7); #Lymphocytes 1.5 thou/uL (1.20-3.40); #Monocytes 0.7 thou/uL (0.11-0.59); #Neutrophils 3.3 thou/uL (1.40-6.50); %Basophils 0.7 % (0.0-1.0); %Lymphocytes 24.9 % (21.0-51.0); %Monocytes 11.9 % (0.0-10.0); %Neutrophils 56.5 % (42.0-75.0); Mean Corpuscular HGB CONC 31.9 g/dL (32.0-36.0); Mean Corpuscular Hemoglobin 30.3 pg (27.0-31.0); Mean Corpuscular Volume 94.8 fL (78.0-98.0); Mean Platelet Volume 8.6 fL (7.4-10.4); Platelet Count 208 thou/uL (130-400); RBC Distribution Width 13.6 % (11.5-14.5); Red Blood Cell (RBC) Count 4.95 mill/uL (4.70-6.10); White Blood Cell (WBC) Count 5.9 thou/uL (4.8-10.8)
[2021-12-21 13:21] LABS: Prothrombin Time 12.9 sec (12.0-14.7)
[2021-12-21 13:22] LABS: ALT (SGPT) 16 U/L (8-55); AST (SGOT) 29 U/L (5-34); Albumin 4.4 g/dL (3.4-4.8); Alkaline Phosphatase 91 U/L (40-110); Anion Gap 15 mmol/L (10-20); BUN (Urea Nitrogen) 17 mg/dL (8.4-25.7); Bilirubin, Total 0.7 mg/dL (0.2-1.2); CK (CPK) 556 U/L (30-200); Calc. Creatinine Clearance 0 mL/min (70-130); Calcium 9.6 mg/dL (7.8-10.44); Carbon Dioxide 26 mmol/L (23-31); Chloride 100 mmol/L (98-107); Estimated GFR 79; Globulin 3.4 g/dL (2.4-3.5); Glucose 83 mg/dL (80-115); PTT 31.3 sec (22.9-36.1); Protein, Total 7.8 g/dL (5.8-8.1); Sodium 137 mmol/L (136-145)
[2021-12-21] MEDS ORDERED: Ondansetron PF 4 MG/2 ML Vial IVP PRN (15:54)
[2021-12-21] MEDS ORDERED: Albuterol Sulfate 2.5 mg/3 ml Neb NEB PRN (16:04)
[2021-12-21] MEDS ORDERED: Aspirin 81 mg Enteric Coated Tablet PO SCH (17:00)
[2021-12-21] MEDS ORDERED: Famotidine 20 MG TAB PO SCH (21:00)
[2021-12-21] MEDS: Atorvastatin Calcium 40 MG TAB PO SCH (21:46)
[2021-12-21] MEDS ORDERED: Nitroglycerin 0.4 MG TAB (25 Tab Bottle) SL PRN (23:58)
[2021-12-22 01:17] VITALS: BMI 27.8
[2021-12-22 05:00] LABS: #Basophils 0.1 thou/uL (0.0-0.2); #Eosinphils 0.3 thou/uL (0.0-0.7); #Lymphocytes 1.3 thou/uL (1.20-3.40); #Monocytes 0.8 thou/uL (0.11-0.59); #Neutrophils 3.6 thou/uL (1.40-6.50); %Basophils 1.3 % (0.0-1.0); %Eosinophils 4.9 % (0.0-10.0); %Lymphocytes 22.2 % (21.0-51.0); %Monocytes 12.4 % (0.0-10.0); %Neutrophils 59.3 % (42.0-75.0); Mean Corpuscular HGB CONC 33.2 g/dL (32.0-36.0); Mean Corpuscular Hemoglobin 31.2 pg (27.0-31.0); Mean Platelet Volume 8.6 fL (7.4-10.4); Platelet Count 202 thou/uL (130-400); RBC Distribution Width 13.8 % (11.5-14.5); Red Blood Cell (RBC) Count 4.49 mill/uL (4.70-6.10)
[2021-12-22 05:19] LABS: Anion Gap 14 mmol/L (10-20); BUN (Urea Nitrogen) 19 mg/dL (8.4-25.7); Calc. Creatinine Clearance 101 mL/min (70-130); Carbon Dioxide 23 mmol/L (23-31); Cardiac Risk 2.3 (Less than 4.5); Chloride 105 mmol/L (98-107); Cholesterol 149 mg/dl (< 200 Desired); Estimated GFR 88; Glucose 103 mg/dL (80-115); HDL Cholesterol 64 mg/dL (>60 Neg Risk); Hemoglobin A1c 5.3 % (4.0-6.0); LDL Cholesterol, Calculated 74 mg/dL; Sodium 138 mmol/L (136-145); Triglycerides 56 mg/dL (Less than 150)
[2021-12-22] MEDS: Multivit, Therapeutic 1 TAB PO SCH (08:48)
[2021-12-22] MEDS: Lisinopril 10 MG TAB PO SCH (08:48)
[2021-12-22] MEDS: Thiamine 100 MG TAB PO SCH (08:48)
[2021-12-22] MEDS: Allopurinol 100 MG TAB PO SCH (08:48)
[2021-12-22] MEDS: Enoxaparin Sodium 40 MG/0.4 ML SYRINGE SC SCH (08:50)
[2021-12-22] MEDS ORDERED: Aspirin 81 mg Enteric Coated Tablet PO SCH (09:00)
[2021-12-22] MEDS: Atorvastatin Calcium 40 MG TAB PO SCH (21:27)
[2021-12-22] MEDS: HYDROcodone/Acetaminophen 7.5/325 mg Tablet PO PRN (21:33)
[2021-12-23] MEDS: HYDROcodone/Acetaminophen 7.5/325 mg Tablet PO PRN (02:52)
[2021-12-23] MEDS: Thiamine 100 MG TAB PO SCH (09:14)
[2021-12-23] MEDS: Allopurinol 100 MG TAB PO SCH (09:14)
[2021-12-23] MEDS: Lisinopril 10 MG TAB PO SCH (09:14)
[2021-12-23] MEDS: Multivit, Therapeutic 1 TAB PO SCH (09:14)
[2021-12-23] MEDS: Enoxaparin Sodium 40 MG/0.4 ML SYRINGE SC SCH (09:19)
[2021-12-23 16:27] VITALS: BP 168/95; TEMP 97.8
== END 2021-12-23 16:55 | disposition home or self-care (01) ==
LOC: ERS 12:43 → NEURO 19:16
PROVIDERS: ADMIT Hospitalist; ATTEND Hospitalist
DX: R27.0 Ataxia, unspecified (principal); R53.1 Weakness; I25.10 Atherosclerotic heart disease of native coronary artery without angina pectoris; I10 Essential (primary) hypertension; E78.00 Pure hypercholesterolemia, unspecified; F17.210 Nicotine dependence, cigarettes, uncomplicated; F10.10 Alcohol abuse, uncomplicated; D64.9 Anemia, unspecified; R13.10 Dysphagia, unspecified; M10.9 Gout, unspecified; I69.311 Memory deficit following cerebral infarction; Z79.82 Long term (current) use of aspirin; Z79.899 Other long term (current) drug therapy; Z95.1 Presence of aortocoronary bypass graft; Z20.822 Contact with and (suspected) exposure to COVID-19
CPT/HCPCS: 36415; 36416; 70450; 70496; 70498; 70551; 71045; 80048; 80053; 80061; 82550; 83036; 84484; 85025; 85610; 85730; 93005; 94760; 95712; 95819; 95957; 96372; 96374; G0378; J1650; J3411; Q9967; U0003; U0005

== ENCOUNTER 2022-01-05 19:25 | Inpatient (IN) | payer OTHER ==
[2022-01-05 19:46] LABS: #Basophils 0.1 thou/uL (0.0-0.2); #Eosinphils 0.4 thou/uL (0.0-0.7); #Lymphocytes 1.5 thou/uL (1.20-3.40); #Monocytes 0.8 thou/uL (0.11-0.59); #Neutrophils 3.1 thou/uL (1.40-6.50); %Basophils 0.9 % (0.0-1.0); %Eosinophils 6.9 % (0.0-10.0); %Monocytes 14.1 % (0.0-10.0); %Neutrophils 53.2 % (42.0-75.0); Hemoglobin 13.8 g/dL (14.0-18.0); Mean Corpuscular HGB CONC 34.5 g/dL (32.0-36.0); Mean Corpuscular Hemoglobin 32.7 pg (27.0-31.0); Mean Corpuscular Volume 94.8 fL (78.0-98.0); Mean Platelet Volume 8.8 fL (7.4-10.4); Platelet Count 202 thou/uL (130-400); RBC Distribution Width 13.7 % (11.5-14.5); Red Blood Cell (RBC) Count 4.21 mill/uL (4.70-6.10); White Blood Cell (WBC) Count 5.8 thou/uL (4.8-10.8)
[2022-01-05 19:57] LABS: PTT 30.1 sec (22.9-36.1)
[2022-01-05 20:01] LABS: ALT (SGPT) 11 U/L (8-55); AST (SGOT) 19 U/L (5-34); Albumin 3.7 g/dL (3.4-4.8); Alkaline Phosphatase 79 U/L (40-110); Anion Gap 14 mmol/L (10-20); BUN (Urea Nitrogen) 9 mg/dL (8.4-25.7); Bilirubin, Total 0.3 mg/dL (0.2-1.2); CK (CPK) 235 U/L (30-200); Calc. Creatinine Clearance 0 mL/min (70-130); Calcium 8.9 mg/dL (7.8-10.44); Carbon Dioxide 21 mmol/L (23-31); Chloride 107 mmol/L (98-107); Estimated GFR 55; Globulin 2.9 g/dL (2.4-3.5); Glucose 85 mg/dL (80-115); Potassium 3.5 mmol/L (3.5-5.1); Protein, Total 6.6 g/dL (5.8-8.1); Sodium 138 mmol/L (136-145)
[2022-01-05] MEDS ORDERED: Aspirin Chewable 81 MG TAB ONE (20:36)
[2022-01-05] MEDS ORDERED: Bisacodyl 5 MG TAB PO PRN (20:54)
[2022-01-05] MEDS ORDERED: Ondansetron PF 4 MG/2 ML Vial IVP PRN (20:54)
[2022-01-05] MEDS ORDERED: Labetalol HCl 100 MG/20 ML VIAL SLOW IVP PRN (20:54)
[2022-01-05] MEDS ORDERED: HYDROcodone/Acetaminophen 7.5/325 mg Tablet PO PRN (20:54)
[2022-01-05] MEDS ORDERED: Zolpidem Tartrate 5 MG TAB PO PRN (20:54)
[2022-01-05] MEDS ORDERED: Nicotine 21 MG PATCH TD SCH (21:00)
[2022-01-05] MEDS: Atorvastatin Calcium 40 MG TAB PO SCH (23:04)
[2022-01-05] MEDS: Lactated Ringer's 1,000 ML IV SCH (23:05)
[2022-01-05 23:12] VITALS: BMI 28.5
[2022-01-06 05:07] LABS: #Eosinphils 0.3 thou/uL (0.0-0.7); #Lymphocytes 1.4 thou/uL (1.20-3.40); #Monocytes 0.6 thou/uL (0.11-0.59); #Neutrophils 3.3 thou/uL (1.40-6.50); %Basophils 0.9 % (0.0-1.0); %Eosinophils 5.4 % (0.0-10.0); %Lymphocytes 24.4 % (21.0-51.0); %Monocytes 11.3 % (0.0-10.0); Hemoglobin 14.1 g/dL (14.0-18.0); Mean Corpuscular HGB CONC 35.4 g/dL (32.0-36.0); Mean Corpuscular Hemoglobin 33.2 pg (27.0-31.0); Mean Corpuscular Volume 93.8 fL (78.0-98.0); Mean Platelet Volume 8.6 fL (7.4-10.4); Platelet Count 198 thou/uL (130-400); RBC Distribution Width 13.6 % (11.5-14.5); Red Blood Cell (RBC) Count 4.23 mill/uL (4.70-6.10); White Blood Cell (WBC) Count 5.7 thou/uL (4.8-10.8)
[2022-01-06 05:31] LABS: ALT (SGPT) 12 U/L (8-55); AST (SGOT) 17 U/L (5-34); Albumin 3.6 g/dL (3.4-4.8); Alkaline Phosphatase 74 U/L (40-110); Anion Gap 14 mmol/L (10-20); BUN (Urea Nitrogen) 12 mg/dL (8.4-25.7); Bilirubin, Total 0.5 mg/dL (0.2-1.2); Calc. Creatinine Clearance 106 mL/min (70-130); Calcium 8.8 mg/dL (7.8-10.44); Carbon Dioxide 21 mmol/L (23-31); Chloride 106 mmol/L (98-107); Estimated GFR 91; Globulin 2.7 g/dL (2.4-3.5); Glucose 113 mg/dL (80-115); Potassium 3.2 mmol/L (3.5-5.1); Protein, Total 6.3 g/dL (5.8-8.1); Sodium 138 mmol/L (136-145)
[2022-01-06 05:34] LABS: Troponin I Less than 0.010 ng/mL (< 0.028)
[2022-01-06] MEDS ORDERED: Potassium Chloride 20 MEQ TAB PO SCH (08:00)
[2022-01-06 08:16] LABS: Magnesium 1.6 mg/dL (1.6-2.6)
[2022-01-06] MEDS: Enoxaparin Sodium 40 MG/0.4 ML SYRINGE SC SCH (08:41)
[2022-01-06] MEDS ORDERED: Lisinopril 10 MG TAB PO SCH (09:00)
[2022-01-06 09:07] LABS: Bacteria/HPF None Seen HPF (None Seen); Bilirubin Negative (Negative); Blood, Urine Negative (Negative); Clarity Clear (Clear); Glucose, Urine (Dipstick) Normal (Negative); Ketone, Urine Negative (Negative); Leukocyte Negative Leu/uL (Negative); Nitrite Negative (Negative); Protein, Urine (Dipstick) Negative (Neg-Trace); RBC/HPF 0-3 HPF (0-3); Specific Gravity, Urine 1.017 (1.002-1.036); Squamous Epithelial 0-3 HPF (0-3); Urobilinogen Normal mg/dL (Less than 2); WBC/HPF 0-3 HPF (0-3)
[2022-01-06] MEDS: Aspirin 325 mg Enteric Coated Tablet PO SCH (10:12)
[2022-01-06] MEDS: Clopidogrel Bisulfate 75 MG TAB PO SCH (10:12)
[2022-01-06] MEDS: Allopurinol 100 MG TAB PO SCH (10:12)
[2022-01-06] MEDS: Folic Acid 1 MG TAB PO SCH (10:13)
[2022-01-06] MEDS: Thiamine 100 MG TAB PO SCH (10:13)
[2022-01-06] MEDS ORDERED: Magnesium 2 GM/50 ML(in water) 2 GM in Premix Bag 1 BAG IVPB SCH (13:00)
[2022-01-06] MEDS: Nicotine 21 MG PATCH TD SCH (13:31)
[2022-01-06] MEDS: Lactated Ringer's 1,000 ML IV SCH (13:36)
[2022-01-06] MEDS: Atorvastatin Calcium 40 MG TAB PO SCH (20:37)
[2022-01-07] MEDS: Enoxaparin Sodium 40 MG/0.4 ML SYRINGE SC SCH (09:26)
[2022-01-07] MEDS: Clopidogrel Bisulfate 75 MG TAB PO SCH (09:26)
[2022-01-07] MEDS: Thiamine 100 MG TAB PO SCH (09:26)
[2022-01-07] MEDS: Allopurinol 100 MG TAB PO SCH (09:26)
[2022-01-07] MEDS: Folic Acid 1 MG TAB PO SCH (09:26)
[2022-01-07] MEDS: Aspirin 325 mg Enteric Coated Tablet PO SCH (09:26)
[2022-01-07 12:18] VITALS: BP 170/97; TEMP 96.8
[2022-01-07 12:31] LABS: Anion Gap 14 mmol/L (10-20); BUN (Urea Nitrogen) 10 mg/dL (8.4-25.7); Calc. Creatinine Clearance 131 mL/min (70-130); Calcium 8.8 mg/dL (7.8-10.44); Carbon Dioxide 24 mmol/L (23-31); Chloride 104 mmol/L (98-107); Estimated GFR 101; Glucose 72 mg/dL (80-115); Magnesium 1.7 mg/dL (1.6-2.6); Potassium 3.7 mmol/L (3.5-5.1); Sodium 138 mmol/L (136-145)
[2022-01-07] MEDS: Nicotine 21 MG PATCH TD SCH (15:19)
[2022-01-08] MEDS ORDERED: Lisinopril 20 MG TAB PO SCH (09:00)
== END 2022-01-07 14:30 | disposition home or self-care (01) | DRG 552 ==
LOC: ERS 19:25 → NEURO 20:40
PROVIDERS: ADMIT Hospitalist; ATTEND Hospitalist
DX: M50.322 Other cervical disc degeneration at C5-C6 level (principal); N17.9 Acute kidney failure, unspecified; G81.94 Hemiplegia, unspecified affecting left nondominant side; Z20.822 Contact with and (suspected) exposure to COVID-19; I25.10 Atherosclerotic heart disease of native coronary artery without angina pectoris; I10 Essential (primary) hypertension; E78.5 Hyperlipidemia, unspecified; Z96.643 Presence of artificial hip joint, bilateral; F17.210 Nicotine dependence, cigarettes, uncomplicated; R27.0 Ataxia, unspecified; R07.9 Chest pain, unspecified; R07.89 Other chest pain; R20.0 Anesthesia of skin; K21.9 Gastro-esophageal reflux disease without esophagitis; M10.9 Gout, unspecified; E83.42 Hypomagnesemia; E87.6 Hypokalemia; F10.10 Alcohol abuse, uncomplicated; D64.9 Anemia, unspecified; M48.02 Spinal stenosis, cervical region; T46.4X5A Adverse effect of angiotensin-converting-enzyme inhibitors, initial encounter; Z95.1 Presence of aortocoronary bypass graft; Z86.73 Personal history of transient ischemic attack (TIA), and cerebral infarction without residual deficits; Z79.899 Other long term (current) drug therapy; Z79.82 Long term (current) use of aspirin; Z90.89 Acquired absence of other organs
CPT/HCPCS: 36415; 70450; 70496; 70498; 70551; 71045; 72141; 80048; 80053; 81001; 82550; 82607; 83735; 84300; 84484; 85025; 85610; 85730; 93005; 94640; J1650; J3475; J7120; J7620; Q9967; U0003; U0005

== ENCOUNTER 2022-01-15 00:57 | Emergency (ER) | payer OTHER ==
[2022-01-15 02:05] LABS: #Eosinphils 0.2 thou/uL (0.0-0.7); #Lymphocytes 1.4 thou/uL (1.20-3.40); #Monocytes 0.8 thou/uL (0.11-0.59); #Neutrophils 5.1 thou/uL (1.40-6.50); %Basophils 0.6 % (0.0-1.0); %Lymphocytes 18.5 % (21.0-51.0); Hemoglobin 14.5 g/dL (14.0-18.0); Mean Corpuscular HGB CONC 34.7 g/dL (32.0-36.0); Mean Corpuscular Hemoglobin 32.5 pg (27.0-31.0); Mean Corpuscular Volume 93.8 fL (78.0-98.0); Mean Platelet Volume 8.9 fL (7.4-10.4); Platelet Count 193 thou/uL (130-400); RBC Distribution Width 14.1 % (11.5-14.5); Red Blood Cell (RBC) Count 4.46 mill/uL (4.70-6.10); White Blood Cell (WBC) Count 7.7 thou/uL (4.8-10.8)
[2022-01-15 02:14] LABS: Prothrombin Time 13.4 sec (12.0-14.7)
[2022-01-15 02:15] LABS: PTT 33.4 sec (22.9-36.1)
[2022-01-15 02:26] LABS: ALT (SGPT) 20 U/L (8-55); AST (SGOT) 29 U/L (5-34); Albumin 4.1 g/dL (3.4-4.8); Alkaline Phosphatase 80 U/L (40-110); Anion Gap 16 mmol/L (10-20); BUN (Urea Nitrogen) 40 mg/dL (8.4-25.7); Bilirubin, Total 0.5 mg/dL (0.2-1.2); CK (CPK) 583 U/L (30-200); Calc. Creatinine Clearance 0 mL/min (70-130); Calcium 9.2 mg/dL (7.8-10.44); Carbon Dioxide 20 mmol/L (23-31); Chloride 103 mmol/L (98-107); Estimated GFR 50; Globulin 3.2 g/dL (2.4-3.5); Glucose 95 mg/dL (80-115); Potassium 4.6 mmol/L (3.5-5.1); Protein, Total 7.3 g/dL (5.8-8.1); Sodium 134 mmol/L (136-145)
[2022-01-15 03:18] LABS: Bilirubin Negative (Negative); Blood, Urine Negative (Negative); Clarity Clear (Clear); Glucose, Urine (Dipstick) Normal (Negative); Ketone, Urine Negative (Negative); Leukocyte Negative Leu/uL (Negative); Nitrite Negative (Negative); Protein, Urine (Dipstick) Negative (Neg-Trace); Specific Gravity, Urine 1.019 (1.002-1.036); Urobilinogen Normal mg/dL (Less than 2); pH, Urine 5.5 (5.0-9.0)
== END 2022-01-15 04:45 | disposition home or self-care (01) ==
LOC: ERS 00:57
DX: R53.1 Weakness (principal); F17.210 Nicotine dependence, cigarettes, uncomplicated; E78.00 Pure hypercholesterolemia, unspecified; I10 Essential (primary) hypertension; M10.9 Gout, unspecified
CPT/HCPCS: 36415; 70450; 71045; 80053; 81003; 82550; 85025; 85610; 85730; 87086; 93005; 96360

== ENCOUNTER 2022-03-20 08:02 | Outpatient (CLI) | payer OTHER | END 2022-03-20 08:03 | disposition home or self-care (01) | LOC: BICULT 08:02 | PROVIDERS: ATTEND Neurological Surgery | DX: I63.89 Other cerebral infarction (principal); I65.23 Occlusion and stenosis of bilateral carotid arteries | CPT/HCPCS: 93880 ==

== ENCOUNTER 2022-04-07 15:42 | Emergency (ER) | payer OTHER ==
[2022-04-07] MEDS ORDERED: Boostrix 0.5 ML (Tdap) VIAL (>/=7 yrs of age) ONE (16:00)
[2022-04-07] MEDS ORDERED: CEFAZOLIN 1 GM VIAL ONE (16:00)
[2022-04-07] MEDS ORDERED: Morphine 4 MG/ML VIAL ONE ×2 (16:00→18:58)
[2022-04-07 16:13] LABS: #Eosinphils 0.3 thou/uL (0.0-0.7); #Lymphocytes 1.2 thou/uL (1.20-3.40); #Monocytes 0.7 thou/uL (0.11-0.59); #Neutrophils 5.8 thou/uL (1.40-6.50); %Basophils 0.4 % (0.0-1.0); %Eosinophils 3.6 % (0.0-10.0); %Lymphocytes 15.2 % (21.0-51.0); %Monocytes 8.5 % (0.0-10.0); %Neutrophils 72.3 % (42.0-75.0); Hemoglobin 12.6 g/dL (14.0-18.0); Mean Corpuscular HGB CONC 32.7 g/dL (32.0-36.0); Mean Corpuscular Hemoglobin 32.2 pg (27.0-31.0); Mean Corpuscular Volume 98.4 fl (78.0-98.0); Mean Platelet Volume 8.4 fL (7.4-10.4); Platelet Count 200 10x3/uL (130-400); RBC Distribution Width 13.6 % (11.5-14.5); White Blood Cell (WBC) Count 8.1 10x3/uL (4.8-10.8)
[2022-04-07 16:34] LABS: ALT (SGPT) 15 U/L (8-55); AST (SGOT) 19 U/L (5-34); Albumin 3.5 g/dL (3.4-4.8); Alcohol Less than 10 mg/dL (Less than 10); Alkaline Phosphatase 70 U/L (40-110); Anion Gap 10 mmol/L (10-20); BUN (Urea Nitrogen) 10 mg/dL (8.4-25.7); Calc. Creatinine Clearance 0 mL/min (70-130); Calcium 8.4 mg/dL (7.8-10.44); Carbon Dioxide 23 mmol/L (23-31); Chloride 109 mmol/L (98-107); Estimated GFR 78; Globulin 2.5 g/dL (2.4-3.5); Glucose 79 mg/dL (80-115); Potassium 3.4 mmol/L (3.5-5.1); Sodium 139 mmol/L (136-145)
[2022-04-07] MEDS ORDERED: Bacitracin 1 PK ONE (16:59)
== END 2022-04-07 19:02 | disposition short-term general hospital (02) ==
LOC: ERS 15:42
DX: S62.631B Displaced fracture of distal phalanx of left index finger, initial encounter for open fracture (principal); E78.00 Pure hypercholesterolemia, unspecified; I10 Essential (primary) hypertension; F17.210 Nicotine dependence, cigarettes, uncomplicated; W29.3XXA Contact with powered garden and outdoor hand tools and machinery, initial encounter; Z23 Encounter for immunization
CPT/HCPCS: 36415; 80053; 80307; 85025; 90471; 90715; 96374; 96375; 96376; J0690; J2270

== ENCOUNTER 2022-04-15 10:21 | Emergency (ER) | payer OTHER | END 2022-04-15 11:55 | disposition home or self-care (01) | LOC: ERS 10:21 | DX: S61.211D Laceration without foreign body of left index finger without damage to nail, subsequent encounter (principal) | CPT/HCPCS: 99282 ==

== ENCOUNTER 2022-05-12 01:00 | Observation (INO) | payer OTHER ==
[2022-05-12 01:34] LABS: #Basophils 0.1 thou/uL (0.0-0.2); #Eosinphils 0.3 thou/uL (0.0-0.7); #Lymphocytes 1.5 thou/uL (1.20-3.40); #Monocytes 0.8 thou/uL (0.11-0.59); #Neutrophils 2.9 thou/uL (1.40-6.50); %Monocytes 13.5 % (0.0-10.0); %Neutrophils 52.6 % (42.0-75.0); Hemoglobin 14.5 g/dL (14.0-18.0); Mean Corpuscular HGB CONC 33.8 g/dL (32.0-36.0); Mean Corpuscular Volume 94.9 fl (78.0-98.0); Mean Platelet Volume 8.2 fL (7.4-10.4); Platelet Count 228 10x3/uL (130-400); RBC Distribution Width 13.2 % (11.5-14.5); Red Blood Cell (RBC) Count 4.52 mill/uL (4.70-6.10); White Blood Cell (WBC) Count 5.6 10x3/uL (4.8-10.8)
[2022-05-12 01:55] LABS: ALT (SGPT) 18 U/L (8-55); AST (SGOT) 26 U/L (5-34); Albumin 4.2 g/dL (3.4-4.8); Alkaline Phosphatase 82 U/L (40-110); Anion Gap 14 mmol/L (10-20); BUN (Urea Nitrogen) 10 mg/dL (8.4-25.7); Bilirubin, Total 0.7 mg/dL (0.2-1.2); Calc. Creatinine Clearance 0 mL/min (70-130); Calcium 9.4 mg/dL (7.8-10.44); Carbon Dioxide 22 mmol/L (23-31); Chloride 102 mmol/L (98-107); Estimated GFR 98; Globulin 2.7 g/dL (2.4-3.5); Glucose 96 mg/dL (80-115); Potassium 3.9 mmol/L (3.5-5.1); Protein, Total 6.9 g/dL (5.8-8.1); Sodium 134 mmol/L (136-145)
[2022-05-12] MEDS ORDERED: Nitroglycerin 0.4 MG TAB 1 EACH ONE ×3 (03:06→04:13)
[2022-05-12] MEDS ORDERED: Aspirin Chewable 81 MG TAB ONE (03:06)
[2022-05-12] MEDS ORDERED: Nitroglycerin 0.4 MG TAB (25 Tab Bottle) SL PRN (04:31)
[2022-05-12] MEDS ORDERED: Ondansetron ODT 4 MG TAB PO PRN (04:33)
[2022-05-12] MEDS ORDERED: Nicotine 21 MG PATCH TD PRN (04:33)
[2022-05-12] MEDS ORDERED: Ondansetron PF 4 MG/2 ML Vial IVP PRN (04:33)
[2022-05-12] MEDS ORDERED: Famotidine 20 MG TAB PO PRN (04:33)
[2022-05-12] MEDS ORDERED: Acetaminophen 325 MG TAB PO PRN (04:33)
[2022-05-12] MEDS ORDERED: Morphine 4 MG/ML VIAL SLOW IVP PRN (04:36)
[2022-05-12 05:01] VITALS: BMI 28.4
[2022-05-12] MEDS ORDERED: Aspirin Chewable 81 MG TAB PO SCH ×2 (05:15→09:00)
[2022-05-12 05:45] LABS: Cardiac Risk 3.1 (Less than 4.5)
[2022-05-12 08:21] LABS: Troponin I Less than 0.010 ng/mL (< 0.028)
[2022-05-12] MEDS ORDERED: FLU VACC QS2022-23(6MOS UP)/PF 60 MCG/0.5 ML SYRINGE IM ONE (09:00)
[2022-05-12] MEDS ORDERED: Regadenoson 0.4 MG/5 ML SYRINGE ONE (09:57)
[2022-05-12 11:03] LABS: Troponin I Less than 0.010 ng/mL (< 0.028)
[2022-05-12 16:16] VITALS: BP 139/82; TEMP 97.5
== END 2022-05-12 18:54 | disposition home or self-care (01) ==
LOC: ERS 01:00 → 2NO 03:19 → INTOOBSV 03:19
PROVIDERS: ADMIT Family Medicine; ATTEND Family Medicine
DX: R07.89 Other chest pain (principal); I10 Essential (primary) hypertension; E78.5 Hyperlipidemia, unspecified; I25.10 Atherosclerotic heart disease of native coronary artery without angina pectoris; F17.200 Nicotine dependence, unspecified, uncomplicated; I25.2 Old myocardial infarction; I77.9 Disorder of arteries and arterioles, unspecified; Z86.73 Personal history of transient ischemic attack (TIA), and cerebral infarction without residual deficits; Z79.899 Other long term (current) drug therapy; Z95.1 Presence of aortocoronary bypass graft; Z20.822 Contact with and (suspected) exposure to COVID-19
CPT/HCPCS: 36415; 71045; 78452; 80053; 80061; 84484; 85025; 93005; 93017; 96372; A9500; G0378; J2270; J2785; U0003; U0005

== ENCOUNTER 2022-05-25 10:14 | Inpatient (IN) | payer OTHER ==
[2022-05-25 11:04] LABS: #Eosinphils 0.4 thou/uL (0.0-0.7); #Lymphocytes 1.5 thou/uL (1.20-3.40); #Monocytes 0.4 thou/uL (0.11-0.59); #Neutrophils 4.3 thou/uL (1.40-6.50); %Basophils 0.4 % (0.0-1.0); %Eosinophils 6.5 % (0.0-10.0); %Lymphocytes 22.6 % (21.0-51.0); %Monocytes 6.1 % (0.0-10.0); %Neutrophils 64.5 % (42.0-75.0); Hemoglobin 13.8 g/dL (14.0-18.0); Mean Corpuscular Hemoglobin 31.7 pg (27.0-31.0); Mean Corpuscular Volume 95.9 fl (78.0-98.0); Mean Platelet Volume 8.5 fL (7.4-10.4); Platelet Count 215 10x3/uL (130-400); RBC Distribution Width 13.5 % (11.5-14.5); Red Blood Cell (RBC) Count 4.36 mill/uL (4.70-6.10); White Blood Cell (WBC) Count 6.7 10x3/uL (4.8-10.8)
[2022-05-25] MEDS ORDERED: Morphine 4 MG/ML VIAL ONE (11:13)
[2022-05-25] MEDS ORDERED: Nitroglycerin 2% Ointment 1 INCH/1 GM Packet ONE (11:14)
[2022-05-25] MEDS ORDERED: Aspirin Chewable 81 MG TAB ONE (11:14)
[2022-05-25 11:20] LABS: ALT (SGPT) 16 U/L (8-55); AST (SGOT) 21 U/L (5-34); Albumin 3.8 g/dL (3.4-4.8); Alkaline Phosphatase 77 U/L (40-110); Anion Gap 12 mmol/L (10-20); BUN (Urea Nitrogen) 21 mg/dL (8.4-25.7); Bilirubin, Total 0.3 mg/dL (0.2-1.2); Calc. Creatinine Clearance 0 mL/min (70-130); Calcium 9.2 mg/dL (7.8-10.44); Carbon Dioxide 21 mmol/L (23-31); Chloride 106 mmol/L (98-107); Estimated GFR 101; Glucose 94 mg/dL (80-115); Lipase 49 U/L (8-78); Potassium 4.4 mmol/L (3.5-5.1); Protein, Total 6.8 g/dL (5.8-8.1); Sodium 135 mmol/L (136-145)
[2022-05-25] MEDS ORDERED: Ondansetron PF 4 MG/2 ML Vial ONE (12:48)
[2022-05-25 13:44] LABS: Magnesium 1.9 mg/dL (1.6-2.6)
[2022-05-25] MEDS ORDERED: Acetaminophen 325 MG TAB PO PRN (14:08)
[2022-05-25] MEDS ORDERED: Senokot S 8.6-50 MG TAB PO PRN (14:08)
[2022-05-25] MEDS ORDERED: Gabapentin 100 MG CAP PO PRN (14:10)
[2022-05-25] MEDS ORDERED: Albuterol 200 PUFF (6.7GM INHALER) INH PRN (14:10)
[2022-05-25 14:12] LABS: Troponin I Less than 0.010 ng/mL (< 0.028)
[2022-05-25] MEDS ORDERED: Ipratropium/Albuterol 3 ML NEB NEB PRN (14:13)
[2022-05-25] MEDS ORDERED: Electrolyte Replacement Protocol 1 EACH FS SCH (14:15)
[2022-05-25] MEDS ORDERED: Electrolyte Replacement Protocol FS PRN (14:15)
[2022-05-25 15:44] VITALS: BMI 27.2
[2022-05-25 18:14] LABS: Troponin I Less than 0.010 ng/mL (< 0.028)
[2022-05-25] MEDS ORDERED: Magnesium 2 GM/50 ML(in water) 2 GM in Premix Bag 1 BAG IVPB SCH (21:00)
[2022-05-25] MEDS ORDERED: Famotidine 20 MG TAB PO SCH (21:00)
[2022-05-25] MEDS: Thiamine 100 MG TAB PO SCH (21:41)
[2022-05-25] MEDS: Atorvastatin Calcium 40 MG TAB PO SCH (21:41)
[2022-05-25] MEDS: Multivit, Therapeutic 1 TAB PO SCH (21:42)
[2022-05-25] MEDS ORDERED: Nitroglycerin 0.4 MG TAB (25 Tab Bottle) SL PRN (23:06)
[2022-05-25] MEDS ORDERED: HYDROcodone/Acetaminophen 5/325 mg Tablet PO SCH (23:15)
[2022-05-26 05:13] LABS: #Eosinphils 0.4 thou/uL (0.0-0.7); #Lymphocytes 1.8 thou/uL (1.20-3.40); #Monocytes 0.7 thou/uL (0.11-0.59); #Neutrophils 2.5 thou/uL (1.40-6.50); %Basophils 0.6 % (0.0-1.0); %Eosinophils 7.9 % (0.0-10.0); %Lymphocytes 32.7 % (21.0-51.0); %Monocytes 12.6 % (0.0-10.0); %Neutrophils 46.1 % (42.0-75.0); Hemoglobin 13.3 g/dL (14.0-18.0); Mean Corpuscular HGB CONC 33.1 g/dL (32.0-36.0); Mean Corpuscular Hemoglobin 31.9 pg (27.0-31.0); Mean Corpuscular Volume 96.1 fl (78.0-98.0); Mean Platelet Volume 8.7 fL (7.4-10.4); Platelet Count 207 10x3/uL (130-400); RBC Distribution Width 13.6 % (11.5-14.5); Red Blood Cell (RBC) Count 4.19 mill/uL (4.70-6.10); White Blood Cell (WBC) Count 5.5 10x3/uL (4.8-10.8)
[2022-05-26 05:43] LABS: ALT (SGPT) 13 U/L (8-55); AST (SGOT) 16 U/L (5-34); Albumin 3.5 g/dL (3.4-4.8); Alkaline Phosphatase 72 U/L (40-110); Anion Gap 14 mmol/L (10-20); BUN (Urea Nitrogen) 16 mg/dL (8.4-25.7); Bilirubin, Total 0.6 mg/dL (0.2-1.2); Calc. Creatinine Clearance 120 mL/min (70-130); Calcium 8.6 mg/dL (7.8-10.44); Carbon Dioxide 20 mmol/L (23-31); Chloride 105 mmol/L (98-107); Estimated GFR 100; Globulin 2.8 g/dL (2.4-3.5); Glucose 120 mg/dL (80-115); Potassium 3.8 mmol/L (3.5-5.1); Protein, Total 6.3 g/dL (5.8-8.1); Sodium 135 mmol/L (136-145)
[2022-05-26] MEDS: Mometasone 200 MCG/Formoterol 5 MCG 120 PUFF INHALER INH SCH ×2 (06:22→19:06)
[2022-05-26 07:48] LABS: Troponin I Less than 0.010 ng/mL (< 0.028)
[2022-05-26] MEDS ORDERED: Magnesium 2 GM/50 ML(in water) 2 GM in Premix Bag 1 BAG IVPB SCH (08:00)
[2022-05-26] MEDS: Allopurinol 100 MG TAB PO SCH (09:10)
[2022-05-26] MEDS: Folic Acid 1 MG TAB PO SCH (09:11)
[2022-05-26] MEDS: Aspirin Chewable 81 MG TAB PO SCH (09:11)
[2022-05-26] MEDS: Lisinopril 20 MG TAB PO SCH (09:11)
[2022-05-26] MEDS ORDERED: Ketorolac Tromethamine 30 MG/ML VIAL IVP SCH (11:15)
[2022-05-26] MEDS: Multivit, Therapeutic 1 TAB PO SCH (21:07)
[2022-05-26] MEDS: Atorvastatin Calcium 40 MG TAB PO SCH (21:07)
[2022-05-26] MEDS: Thiamine 100 MG TAB PO SCH (21:07)
[2022-05-26] MEDS ORDERED: Melatonin 3 MG TAB PO PRN (23:45)
[2022-05-27 04:57] LABS: #Eosinphils 0.5 thou/uL (0.0-0.7); #Lymphocytes 1.7 thou/uL (1.20-3.40); #Monocytes 0.7 thou/uL (0.11-0.59); #Neutrophils 3.3 thou/uL (1.40-6.50); %Basophils 0.5 % (0.0-1.0); %Eosinophils 7.6 % (0.0-10.0); %Lymphocytes 27.6 % (21.0-51.0); %Monocytes 10.5 % (0.0-10.0); %Neutrophils 53.9 % (42.0-75.0); Hemoglobin 12.7 g/dL (14.0-18.0); Mean Corpuscular HGB CONC 33.2 g/dL (32.0-36.0); Mean Corpuscular Hemoglobin 32.2 pg (27.0-31.0); Mean Platelet Volume 8.4 fL (7.4-10.4); Platelet Count 210 10x3/uL (130-400); RBC Distribution Width 13.3 % (11.5-14.5); Red Blood Cell (RBC) Count 3.96 mill/uL (4.70-6.10); White Blood Cell (WBC) Count 6.2 10x3/uL (4.8-10.8)
[2022-05-27 05:25] LABS: Anion Gap 10 mmol/L (10-20); BUN (Urea Nitrogen) 20 mg/dL (8.4-25.7); Calc. Creatinine Clearance 102 mL/min (70-130); Calcium 8.7 mg/dL (7.8-10.44); Carbon Dioxide 23 mmol/L (23-31); Chloride 104 mmol/L (98-107); Estimated GFR 92; Glucose 90 mg/dL (80-115); Magnesium 1.9 mg/dL (1.6-2.6); Potassium 4.3 mmol/L (3.5-5.1); Sodium 133 mmol/L (136-145)
[2022-05-27] MEDS ORDERED: Magnesium 2 GM/50 ML(in water) 2 GM in Premix Bag 1 BAG IVPB SCH (08:00)
[2022-05-27] MEDS: Allopurinol 100 MG TAB PO SCH (08:33)
[2022-05-27] MEDS: Aspirin Chewable 81 MG TAB PO SCH (08:33)
[2022-05-27] MEDS: Lisinopril 20 MG TAB PO SCH (08:34)
[2022-05-27] MEDS: Folic Acid 1 MG TAB PO SCH (08:34)
[2022-05-27] MEDS ORDERED: Ezetimibe 10 MG TAB PO SCH (09:00)
[2022-05-27 09:14] VITALS: BP 114/74; TEMP 97.8
[2022-05-27] MEDS: Mometasone 200 MCG/Formoterol 5 MCG 120 PUFF INHALER INH SCH (09:20)
[2022-05-27 09:58] LABS: Amphetamine Not Detected (NotDetected); Barbiturates Screen Not Detected (NotDetected); Benzodiazepine Screen Not Detected (NotDetected); Cocaine Metabolite Screen Detected (NotDetected); Methadone Not Detected (NotDetected); Methamphetamine Not Detected (NotDetected); Opiate Screen Detected (NotDetected); Oxycodone Screen Not Detected (NotDetected); Phencyclidine (PCP) Not Detected (NotDetected); THC/Cannabinoid Screen Not Detected (NotDetected); Tricyclic Screen Not Detected (NotDetected)
== END 2022-05-27 11:04 | disposition home or self-care (01) | DRG 313 ==
LOC: ERS 10:14 → 2SW 13:24 → OBSVTOIN 05-26 09:03
PROVIDERS: ADMIT Internal Medicine; ATTEND Internal Medicine
DX: R07.89 Other chest pain (principal); I69.959 Hemiplegia and hemiparesis following unspecified cerebrovascular disease affecting unspecified side; E87.1 Hypo-osmolality and hyponatremia; K21.9 Gastro-esophageal reflux disease without esophagitis; E83.42 Hypomagnesemia; J44.9 Chronic obstructive pulmonary disease, unspecified; I10 Essential (primary) hypertension; E78.5 Hyperlipidemia, unspecified; F17.210 Nicotine dependence, cigarettes, uncomplicated; I25.10 Atherosclerotic heart disease of native coronary artery without angina pectoris; Z95.1 Presence of aortocoronary bypass graft; Z79.82 Long term (current) use of aspirin; Z79.899 Other long term (current) drug therapy; Z79.51 Long term (current) use of inhaled steroids
CPT/HCPCS: 36415; 80048; 80053; 80306; 83690; 83735; 84484; 85025; 85379; 93005; 93010; 96365; 96372; 96374; 96375; G0378; J1650; J1885; J2270; J2405; J3475; U0003; U0005

== ENCOUNTER 2022-06-24 06:40 | Day surgery (SDC) | payer OTHER ==
[2022-06-21 09:54] VITALS: BMI 31.0
[2022-06-24] MEDS ORDERED: Lidocaine 1% PF 5 ML VIAL ONE (08:03)
[2022-06-24] MEDS ORDERED: PROPOFOL 200 MG/20 ML VIAL ONE (08:03)
== END 2022-06-24 09:25 | disposition home or self-care (01) ==
LOC: SDC 06:40
PROVIDERS: ATTEND Internal Medicine
PROC: 0D738ZZ Dilation of Lower Esophagus, Via Natural or Artificial Opening Endoscopic (ICD-10-PCS; principal; 2022-06-24)
DX: K22.2 Esophageal obstruction (principal); K22.10 Ulcer of esophagus without bleeding; K29.60 Other gastritis without bleeding; K44.9 Diaphragmatic hernia without obstruction or gangrene; K21.9 Gastro-esophageal reflux disease without esophagitis; M19.90 Unspecified osteoarthritis, unspecified site; J45.909 Unspecified asthma, uncomplicated; M10.9 Gout, unspecified; I10 Essential (primary) hypertension; E78.00 Pure hypercholesterolemia, unspecified; F17.210 Nicotine dependence, cigarettes, uncomplicated; Z86.73 Personal history of transient ischemic attack (TIA), and cerebral infarction without residual deficits; Z79.82 Long term (current) use of aspirin; Z79.899 Other long term (current) drug therapy; Z95.1 Presence of aortocoronary bypass graft
CPT/HCPCS: J2704

== ENCOUNTER 2022-06-25 14:22 | Emergency (ER) | payer OTHER | END 2022-06-25 16:05 | disposition home or self-care (01) | LOC: ERS 14:22 | DX: S43.421A Sprain of right rotator cuff capsule, initial encounter (principal); E78.00 Pure hypercholesterolemia, unspecified; I10 Essential (primary) hypertension; W07.XXXA Fall from chair, initial encounter ==

== ENCOUNTER 2022-07-05 14:00 | Outpatient (CLI) | payer OTHER | END 2022-07-05 14:01 | disposition home or self-care (01) | LOC: EEG 14:00 | PROVIDERS: ATTEND Psychiatry & Neurology Neurology | DX: R41.3 Other amnesia (principal) | CPT/HCPCS: 95816; 95957 ==

== ENCOUNTER 2022-08-17 13:01 | Emergency (ER) | payer OTHER ==
[2022-08-17] MEDS ORDERED: Ketorolac Tromethamine 30 MG/ML VIAL ONE (14:10)
== END 2022-08-17 15:15 | disposition home or self-care (01) ==
LOC: ERS 13:01
DX: M25.561 Pain in right knee (principal); E78.00 Pure hypercholesterolemia, unspecified; I10 Essential (primary) hypertension; W18.39XA Other fall on same level, initial encounter; Y93.89 Activity, other specified; Z79.899 Other long term (current) drug therapy
CPT/HCPCS: 96372; J1885

== ENCOUNTER 2022-08-30 11:14 | Emergency (ER) | payer OTHER | END 2022-08-30 14:14 | LOC: ERS 11:14 | DX: S83.91XA Sprain of unspecified site of right knee, initial encounter (principal); I10 Essential (primary) hypertension; E78.5 Hyperlipidemia, unspecified; W19.XXXA Unspecified fall, initial encounter; Z79.899 Other long term (current) drug therapy ==

== ENCOUNTER 2022-09-24 10:39 | Emergency (ER) | payer OTHER ==
[2022-09-24] MEDS ORDERED: HYDROcodone/Acetaminophen 5/325 mg Tablet ONE (12:32)
== END 2022-09-24 14:11 | disposition home or self-care (01) ==
LOC: ERS 10:39
DX: M25.561 Pain in right knee (principal); E78.5 Hyperlipidemia, unspecified; I10 Essential (primary) hypertension; Z79.899 Other long term (current) drug therapy

== ENCOUNTER 2022-12-14 14:26 | Emergency (ER) | payer OTHER ==
[~2022-12-14 14:26] MED LIST changes: -Iopamidol-370 76% 500 ML 1 ML ONE; +Iopamidol-370 76% 500 ML MDV (1 ML CHARGE) ONE
[2022-12-14] MEDS ORDERED: Ketorolac Tromethamine 30 MG/ML VIAL ONE (14:53)
[2022-12-14 15:53] LABS: ALT (SGPT) 11 U/L (8-55); AST (SGOT) 24 U/L (5-34); Albumin 4.2 g/dL (3.4-4.8); Alkaline Phosphatase 93 U/L (40-110); Anion Gap 15 mmol/L (10-20); BUN (Urea Nitrogen) 16 mg/dL (8.4-25.7); Bilirubin, Total 0.6 mg/dL (0.2-1.2); Calc. Creatinine Clearance 0 mL/min (70-130); Calcium 9.5 mg/dL (7.8-10.44); Carbon Dioxide 27 mmol/L (23-31); Chloride 100 mmol/L (98-107); Estimated GFR 74; Globulin 3.3 g/dL (2.4-3.5); Glucose 98 mg/dL (80-115); Potassium 3.5 mmol/L (3.5-5.1); Protein, Total 7.5 g/dL (5.8-8.1); Sodium 138 mmol/L (136-145)
== END 2022-12-14 17:34 | disposition home or self-care (01) ==
LOC: ERS 14:26
DX: S16.1XXA Strain of muscle, fascia and tendon at neck level, initial encounter (principal); I10 Essential (primary) hypertension; E78.5 Hyperlipidemia, unspecified; F17.290 Nicotine dependence, other tobacco product, uncomplicated; Y04.0XXA Assault by unarmed brawl or fight, initial encounter
CPT/HCPCS: 36415; 70450; 70498; 72125; 80053; 96372; J1885; Q9967

== ENCOUNTER 2023-01-22 07:29 | Emergency (ER) | payer OTHER | END 2023-01-22 09:09 | disposition home or self-care (01) | LOC: ERS 07:29 | DX: S13.4XXA Sprain of ligaments of cervical spine, initial encounter (principal); E78.5 Hyperlipidemia, unspecified; I10 Essential (primary) hypertension; F17.290 Nicotine dependence, other tobacco product, uncomplicated; Z79.899 Other long term (current) drug therapy; Z79.82 Long term (current) use of aspirin; Y04.0XXA Assault by unarmed brawl or fight, initial encounter | CPT/HCPCS: 99283 ==

== ENCOUNTER 2023-03-04 06:07 | Emergency (ER) | payer OTHER ==
[2023-03-04 08:23] LABS: #Eosinphils 0.4 thou/uL (0.0-0.7); #Monocytes 0.9 thou/uL (0.11-0.59); #Neutrophils 6.4 thou/uL (1.40-6.50); %Basophils 0.4 % (0.0-1.0); %Eosinophils 4.7 % (0.0-10.0); %Lymphocytes 14.1 % (21.0-51.0); %Monocytes 9.7 % (0.0-10.0); %Neutrophils 70.8 % (42.0-75.0); Hematocrit 43.6 % (42.0-52.0); Hemoglobin 14.6 g/dL (14.0-18.0); Mean Corpuscular HGB CONC 33.5 g/dL (32.0-36.0); Mean Corpuscular Hemoglobin 31.1 pg (27.0-31.0); Mean Corpuscular Volume 92.8 fl (78.0-98.0); Mean Platelet Volume 10.4 fL (7.4-10.4); Platelet Count 296 10x3/uL (130-400); RBC Distribution Width 14.5 % (11.5-14.5); White Blood Cell (WBC) Count 9.1 10x3/uL (4.8-10.8)
[2023-03-04 08:47] LABS: ALT (SGPT) 9 U/L (8-55); AST (SGOT) 15 U/L (5-34); Albumin 4.6 g/dL (3.4-4.8); Alkaline Phosphatase 101 U/L (40-110); Anion Gap 14 mmol/L (10-20); BUN (Urea Nitrogen) 9 mg/dL (8.4-25.7); Bilirubin, Total 0.5 mg/dL (0.2-1.2); Calc. Creatinine Clearance 0 mL/min (70-130); Carbon Dioxide 29 mmol/L (23-31); Chloride 98 mmol/L (98-107); Estimated GFR 97; Globulin 3.3 g/dL (2.4-3.5); Glucose 88 mg/dL (80-115); Potassium 4.1 mmol/L (3.5-5.1); Protein, Total 7.9 g/dL (5.8-8.1); Sodium 137 mmol/L (136-145)
== END 2023-03-04 09:50 | disposition home or self-care (01) ==
LOC: ERS 06:07
DX: L03.116 Cellulitis of left lower limb (principal); M10.9 Gout, unspecified; I10 Essential (primary) hypertension; E78.5 Hyperlipidemia, unspecified; F17.290 Nicotine dependence, other tobacco product, uncomplicated; Z79.899 Other long term (current) drug therapy; Z79.82 Long term (current) use of aspirin
CPT/HCPCS: 80053; 83605; 83880; 85025; 87040

== ENCOUNTER 2023-03-13 12:11 | Emergency (ER) | payer OTHER | END 2023-03-13 13:56 | disposition home or self-care (01) | LOC: ERS 12:11 | DX: L03.115 Cellulitis of right lower limb (principal); L03.116 Cellulitis of left lower limb; M02.30 Reiter's disease, unspecified site; E78.5 Hyperlipidemia, unspecified; I10 Essential (primary) hypertension; F17.290 Nicotine dependence, other tobacco product, uncomplicated; Z79.899 Other long term (current) drug therapy; Z79.82 Long term (current) use of aspirin; Z76.0 Encounter for issue of repeat prescription | CPT/HCPCS: 99283 ==

== ENCOUNTER 2023-10-16 14:47 | Outpatient (CLI) | payer OTHER | END 2023-10-16 14:48 | disposition home or self-care (01) | LOC: BICRAD 14:47 | PROVIDERS: ATTEND Physician Assistant Medical | DX: K21.00 Gastro-esophageal reflux disease with esophagitis, without bleeding (principal); R05.9 Cough, unspecified; R06.2 Wheezing; K44.9 Diaphragmatic hernia without obstruction or gangrene; I10 Essential (primary) hypertension | CPT/HCPCS: 71046 ==

== ENCOUNTER 2023-11-06 09:36 | Outpatient (CLI) | payer OTHER ==
[2023-11-06] MEDS ORDERED: E-Z-HD 98% W/W 340GM BOT (x-ray ONLY) ONE (09:54)
[2023-11-06] MEDS ORDERED: Barium Sulfate 96% 176 GM BOT (xray ONLY) ONE (09:54)
== END 2023-11-06 09:37 | disposition home or self-care (01) ==
LOC: RAD 09:36
PROVIDERS: ATTEND Surgery
DX: K44.9 Diaphragmatic hernia without obstruction or gangrene (principal); K22.89 Other specified disease of esophagus
CPT/HCPCS: 74220

== ENCOUNTER 2024-04-01 10:28 | Outpatient (CLI) | payer OTHER, MEDICAID ==
[2024-04-01 11:44] LABS: #Basophils 0.05 10x3/uL (0.0-0.2); %Basophils 0.5 % (0.0-1.0); %Eosinophils 5.3 % (0.0-10.0); %Lymphocytes 16.1 % (21.0-51.0); %Monocytes 10.8 % (0.0-10.0); Hematocrit 43.6 % (42.0-52.0); Hemoglobin 14.7 g/dL (14.0-18.0); Mean Corpuscular HGB CONC 33.7 g/dL (32.0-36.0); Mean Corpuscular Hemoglobin 30.1 pg (27.0-31.0); Mean Corpuscular Volume 89.3 fL (78.0-98.0); Mean Platelet Volume 10.6 fL (7.4-10.4); Platelet Count 262 10x3/uL (130-400); RBC Distribution Width 14.7 % (11.5-14.5); Red Blood Cell (RBC) Count 4.88 mill/uL (4.70-6.10)
[2024-04-01 12:05] LABS: Anion Gap 13 mmol/L (10-20); BUN (Urea Nitrogen) 10 mg/dL (8.4-25.7); Calc. Creatinine Clearance 0 mL/min (70-130); Calcium 9.5 mg/dL (7.8-10.44); Carbon Dioxide 20 mmol/L (23-31); Chloride 105 mmol/L (98-107); Estimated GFR 97; Glucose 89 mg/dL (80-115); Potassium 4.2 mmol/L (3.5-5.1); Sodium 134 mmol/L (136-145)
== END 2024-04-01 10:29 | disposition home or self-care (01) ==
LOC: LABBT 10:28
PROVIDERS: ATTEND Surgery
DX: Z01.818 Encounter for other preprocedural examination (principal); K44.9 Diaphragmatic hernia without obstruction or gangrene
CPT/HCPCS: 80048; 85025; 93005; 93010

== ENCOUNTER 2024-04-06 07:55 | Observation (INO) | payer OTHER, MEDICAID ==
[2024-04-01 10:50] VITALS: BMI 29.7
[2024-04-06] MEDS ORDERED: Rocuronium Bromide 10 MG/ML (10ML VIAL) ONE (10:27)
[2024-04-06] MEDS ORDERED: Lidocaine 1% PF 5 ML VIAL ONE (10:27)
[2024-04-06] MEDS ORDERED: PROPOFOL 20 ML ONE (10:27)
[2024-04-06] MEDS ORDERED: PHENYLEPHRINE-NS 100 MCG/ML 10 ML SYRINGE ONE ×2 (10:54→13:31)
[2024-04-06] MEDS ORDERED: Ondansetron PF 4 MG/2 ML Vial ONE ×2 (11:11→12:42)
[2024-04-06] MEDS ORDERED: fentaNYL 50 mcg/mL 1 mL Vial ONE (11:37)
[2024-04-06] MEDS ORDERED: EPINEPHrine 1 MG/ML VIAL ONE (11:39)
[2024-04-06] MEDS ORDERED: Bupivacaine 0.25% HCL 30 ML VIAL ONE ×2 (11:39→12:00)
[2024-04-06] MEDS ORDERED: CEFAZOLIN 2 GM VIAL ONE (12:19)
[2024-04-06] MEDS ORDERED: Dexamethasone 4 mg/ml Vial ONE (12:42)
[2024-04-06] MEDS ORDERED: ePHEDrine Sulfate 50 MG/10 ML VIAL ONE (12:46)
[2024-04-06] MEDS ORDERED: fentaNYL PF 100 MCG/2 ML SYRINGE ONE ×2 (13:01→14:27)
[2024-04-06] MEDS ORDERED: SUGAMMADEX SODIUM 200 MG/2 ML VIAL ONE (13:44)
[2024-04-06] MEDS ORDERED: Sodium Chloride 0.9% 250 ML 250 ML ONE (13:56)
[2024-04-06] MEDS ORDERED: HYDROmorphone 0.5 MG/0.5 ML SYRINGE ONE ×2 (14:39→15:03)
[2024-04-06] MEDS ORDERED: Naloxone HCl 0.4 mg/ml Vial IVP PRN (16:54)
[2024-04-06] MEDS ORDERED: Albuterol 200 PUFF (6.7GM INHALER) INH PRN (16:54)
[2024-04-06] MEDS ORDERED: Morphine 4 MG/ML VIAL SLOW IVP PRN (16:54)
[2024-04-06] MEDS ORDERED: Ipratropium/Albuterol 3 ML NEB NEB PRN (16:54)
[2024-04-06] MEDS ORDERED: Ondansetron PF 4 MG/2 ML Vial IVP PRN (16:54)
[2024-04-06] MEDS ORDERED: Glucagon 1 MG/ML KIT IM PRN (16:54)
[2024-04-06] MEDS ORDERED: Promethazine HCl 25 MG/ML VIAL IM PRN (16:54)
[2024-04-06] MEDS ORDERED: Dextrose 50% Abboject 50 ML SYRINGE SLOW IVP PRN (16:54)
[2024-04-06] MEDS ORDERED: Dextrose 5% in Water 1,000 ML IV PRN (16:54)
[2024-04-06] MEDS: D5 1/2 NS w/20 mEq KCL 1,000 ML IV SCH (17:59)
[2024-04-06] MEDS: oxyCODONE 5 MG TAB PO PRN (18:03)
[2024-04-06] MEDS: hydrALAZINE 20 MG/ML VIAL SLOW IVP PRN (19:01)
[2024-04-06] MEDS: traMADol HCl 50 MG TAB PO PRN (20:12)
[2024-04-06 21:25] VITALS: BP 162/98; TEMP 97.4
[2024-04-06] MEDS ORDERED: Acetaminophen 500 MG TAB PO SCH (22:00)
[2024-04-07] MEDS ORDERED: Pantoprazole 40 MG VIAL IVP SCH (09:00)
[2024-04-07] MEDS ORDERED: Amlodipine 10 MG TAB PO SCH (09:00)
[2024-04-07] MEDS ORDERED: Atorvastatin Calcium 40 MG TAB PO SCH (09:00)
[2024-04-07] MEDS ORDERED: Enoxaparin 40 MG (0.4 mL) SYRINGE SC SCH (09:00)
[2024-04-07] MEDS ORDERED: Lisinopril 20 MG TAB PO SCH (09:00)
== END 2024-04-07 11:05 | disposition home or self-care (01) ==
LOC: SDC 07:55 → SURG B 16:33
PROVIDERS: ADMIT Surgery; ATTEND Surgery
PROC: 0BQT4ZZ Repair Diaphragm, Percutaneous Endoscopic Approach (ICD-10-PCS; principal; 2024-04-06)
DX: K44.9 Diaphragmatic hernia without obstruction or gangrene (principal); I25.10 Atherosclerotic heart disease of native coronary artery without angina pectoris; K21.9 Gastro-esophageal reflux disease without esophagitis; E78.00 Pure hypercholesterolemia, unspecified; I10 Essential (primary) hypertension; E78.5 Hyperlipidemia, unspecified; J45.909 Unspecified asthma, uncomplicated; M19.90 Unspecified osteoarthritis, unspecified site; Z86.73 Personal history of transient ischemic attack (TIA), and cerebral infarction without residual deficits; Z87.891 Personal history of nicotine dependence; Z88.1 Allergy status to other antibiotic agents; Z79.899 Other long term (current) drug therapy; Z98.890 Other specified postprocedural states; Z95.1 Presence of aortocoronary bypass graft; Z96.643 Presence of artificial hip joint, bilateral; Z90.89 Acquired absence of other organs
CPT/HCPCS: 43281; J0171; J0360; J0665; J1100; J2405; J2704; J3010; J3480; J7050; S2900

== ENCOUNTER 2024-04-15 20:16 | Emergency (ER) | payer OTHER ==
[2024-04-15] MEDS ORDERED: Morphine 2 MG/ML VIAL ONE (20:30)
[2024-04-15] MEDS ORDERED: Ipratropium/Albuterol 3 ML NEB ONE (20:35)
[2024-04-15 20:45] LABS: #Basophils 0.06 10x3/uL (0.0-0.2); %Basophils 0.9 % (0.0-1.0); %Eosinophils 6.3 % (0.0-10.0); %Lymphocytes 30.4 % (21.0-51.0); %Monocytes 17.4 % (0.0-10.0); %Neutrophils 44.5 % (42.0-75.0); Hematocrit 39.2 % (42.0-52.0); Mean Corpuscular HGB CONC 33.2 g/dL (32.0-36.0); Mean Corpuscular Hemoglobin 30.2 pg (27.0-31.0); Mean Platelet Volume 10.3 fL (7.4-10.4); Platelet Count 274 10x3/uL (130-400); RBC Distribution Width 14.6 % (11.5-14.5); Red Blood Cell (RBC) Count 4.31 mill/uL (4.70-6.10)
[2024-04-15 21:05] LABS: ALT (SGPT) 8 U/L (8-55); AST (SGOT) 14 U/L (5-34); Albumin 3.3 g/dL (3.4-4.8); Alkaline Phosphatase 95 U/L (40-110); Anion Gap 15 mmol/L (10-20); BUN (Urea Nitrogen) 21 mg/dL (8.4-25.7); Bilirubin, Total 0.2 mg/dL (0.2-1.2); Calc. Creatinine Clearance 0 mL/min (70-130); Calcium 9.2 mg/dL (7.8-10.44); Carbon Dioxide 20 mmol/L (23-31); Chloride 105 mmol/L (98-107); Estimated GFR 91; Globulin 3.4 g/dL (2.4-3.5); Glucose 120 mg/dL (80-115); Lipase 27 U/L (8-78); Magnesium 1.9 mg/dL (1.6-2.6); Potassium 4.5 mmol/L (3.5-5.1); Protein, Total 6.7 g/dL (5.8-8.1); Sodium 135 mmol/L (136-145)
[2024-04-15 21:09] LABS: Troponin I Less than 0.010 ng/mL (< 0.028)
[2024-04-15 23:19] LABS: Bacteria/HPF None Seen HPF (None Seen); Bilirubin Negative (Negative); Blood, Urine Negative (Negative); CAUTI Indications for Culture Pelvic or flank pain; Clarity Clear (Clear); Glucose, Urine (Dipstick) Normal (Negative); Ketone, Urine Negative (Negative); Leukocyte Negative Leu/uL (Negative); Nitrite Negative (Negative); Protein, Urine (Dipstick) Negative (Neg-Trace); RBC/HPF 0-3 HPF (0-3); Specific Gravity, Urine 1.023 (1.002-1.036); Squamous Epithelial 0-3 HPF (0-3); Urobilinogen Normal mg/dL (Less than 2); WBC/HPF 0-3 HPF (0-3); pH, Urine 6.5 (5.0-9.0)
[2024-04-15 23:24] LABS: Urine Culture Reflex No No
== END 2024-04-15 22:41 | disposition home or self-care (01) ==
LOC: ERS 20:16
DX: R10.9 Unspecified abdominal pain (principal); I10 Essential (primary) hypertension; E78.5 Hyperlipidemia, unspecified; I25.2 Old myocardial infarction; F17.290 Nicotine dependence, other tobacco product, uncomplicated; Z86.73 Personal history of transient ischemic attack (TIA), and cerebral infarction without residual deficits; Z79.899 Other long term (current) drug therapy
CPT/HCPCS: 36415; 71045; 74177; 80053; 81001; 83690; 83735; 83880; 84484; 85025; 93005; 94640; 96374; J2272; J7620

== ENCOUNTER 2024-06-23 15:54 | Emergency (ER) | payer OTHER ==
[2024-06-23] MEDS ORDERED: Bupivacaine PF 0.5% 30 ML VIAL ONE (16:21)
[2024-06-23] MEDS ORDERED: Bacitracin 1 PK ONE (18:15)
== END 2024-06-23 19:34 | disposition home or self-care (01) ==
LOC: ERS 15:54
DX: S61.213A Laceration without foreign body of left middle finger without damage to nail, initial encounter (principal); I10 Essential (primary) hypertension; E78.5 Hyperlipidemia, unspecified; J45.909 Unspecified asthma, uncomplicated; I25.2 Old myocardial infarction; F17.210 Nicotine dependence, cigarettes, uncomplicated; Z79.899 Other long term (current) drug therapy; W23.1XXA Caught, crushed, jammed, or pinched between stationary objects, initial encounter
CPT/HCPCS: 12002; 99283; J0665

== ENCOUNTER 2024-06-30 05:53 | Day surgery (SDC) | payer OTHER, MEDICAID ==
[2024-06-29 10:25] VITALS: BMI 27.8
[2024-06-30] MEDS ORDERED: Bupivacaine PF 0.5% 30 ML VIAL ONE (06:37)
[2024-06-30] MEDS ORDERED: PROPOFOL 20 ML ONE (06:42)
[2024-06-30] MEDS ORDERED: Lidocaine 1% PF 5 ML VIAL ONE (06:43)
[2024-06-30] MEDS ORDERED: fentaNYL PF 100 MCG/2 ML SYRINGE ONE (06:44)
[2024-06-30] MEDS ORDERED: CEFAZOLIN 2 GM VIAL ONE (07:07)
[2024-06-30] MEDS ORDERED: PHENYLEPHRINE-NS 100 MCG/ML 10 ML SYRINGE ONE (07:49)
[2024-06-30] MEDS ORDERED: Dexamethasone 4 mg/ml Vial ONE (08:01)
[2024-06-30] MEDS ORDERED: ePHEDrine Sulfate 50 MG/10 ML VIAL ONE (08:01)
[2024-06-30] MEDS ORDERED: Glycopyrrolate 0.2 MG/ML 5 ML SYRINGE ONE (08:12)
== END 2024-06-30 11:56 | disposition home or self-care (01) ==
LOC: SDC 05:53
PROVIDERS: ATTEND Orthopaedic Surgery
PROC: 0X6R0Z1 Detachment at Left Middle Finger, High, Open Approach (ICD-10-PCS; principal; 2024-06-30)
DX: S68.623A Partial traumatic transphalangeal amputation of left middle finger, initial encounter (principal); I11.9 Hypertensive heart disease without heart failure; I25.10 Atherosclerotic heart disease of native coronary artery without angina pectoris; E78.00 Pure hypercholesterolemia, unspecified; J45.909 Unspecified asthma, uncomplicated; J43.9 Emphysema, unspecified; K21.9 Gastro-esophageal reflux disease without esophagitis; N40.0 Benign prostatic hyperplasia without lower urinary tract symptoms; M10.9 Gout, unspecified; Z95.1 Presence of aortocoronary bypass graft; Z96.643 Presence of artificial hip joint, bilateral; Z86.73 Personal history of transient ischemic attack (TIA), and cerebral infarction without residual deficits; Z87.891 Personal history of nicotine dependence; Z90.49 Acquired absence of other specified parts of digestive tract; Z90.89 Acquired absence of other organs; Z88.1 Allergy status to other antibiotic agents; Z79.82 Long term (current) use of aspirin; Z79.899 Other long term (current) drug therapy; W23.1XXA Caught, crushed, jammed, or pinched between stationary objects, initial encounter
CPT/HCPCS: 26951; 87070; 87075; 87077; 87186; 87205; J0665; J1100; J2704

== ENCOUNTER 2024-12-21 09:12 | Outpatient (CLI) | payer OTHER, MEDICAID ==
[2024-12-21 11:46] LABS: #Basophils 0.05 10x3/uL (0.0-0.2); #Eosinophils 0.51 10x3/uL (0.0-0.7); #Monocytes 0.65 10x3/uL (0.11-0.59); #Neutrophils 3.46 10x3/uL (1.40-6.50); %Basophils 0.8 % (0.0-1.0); %Eosinophils 8.2 % (0.0-10.0); %Lymphocytes 24.6 % (21.0-51.0); %Monocytes 10.5 % (0.0-10.0); %Neutrophils 55.6 % (42.0-75.0); Hematocrit 38.3 % (42.0-52.0); Hemoglobin 12.3 g/dL (14.0-18.0); Mean Corpuscular Hemoglobin 29.8 pg (27.0-31.0); Mean Corpuscular Volume 92.7 fL (78.0-98.0); Platelet Count 234 10x3/uL (130-400); Red Blood Cell (RBC) Count 4.13 mill/uL (4.70-6.10); White Blood Cell (WBC) Count 6.22 10x3/uL (4.8-10.8)
[2024-12-21 12:11] LABS: Anion Gap 11 mmol/L (10-20); BUN (Urea Nitrogen) 16 mg/dL (8.4-25.7); Calc. Creatinine Clearance 0 mL/min (70-130); Calcium 8.6 mg/dL (7.8-10.44); Carbon Dioxide 21 mmol/L (23-31); Chloride 107 mmol/L (98-107); Glucose 80 mg/dL (80-115); Potassium 4.4 mmol/L (3.5-5.1); Sodium 135 mmol/L (136-145)
== END 2024-12-21 09:13 | disposition home or self-care (01) ==
LOC: LABBT 09:12
PROVIDERS: ATTEND Surgery
DX: Z01.818 Encounter for other preprocedural examination (principal); K44.9 Diaphragmatic hernia without obstruction or gangrene
CPT/HCPCS: 80048; 85025; 93005; 93010

== ENCOUNTER 2025-03-15 16:41 | Inpatient (IN) | payer OTHER, MEDICAID ==
[2025-03-15 17:08] LABS: #Basophils 0.03 10x3/uL (0.0-0.2); #Eosinophils 0.43 10x3/uL (0.0-0.7); #Monocytes 0.96 10x3/uL (0.11-0.59); #Neutrophils 6.53 10x3/uL (1.40-6.50); %Basophils 0.3 % (0.0-1.0); %Eosinophils 4.7 % (0.0-10.0); %Lymphocytes 11.9 % (21.0-51.0); %Monocytes 10.6 % (0.0-10.0); %Neutrophils 72.2 % (42.0-75.0); Hematocrit 36.3 % (42.0-52.0); Hemoglobin 12.1 g/dL (14.0-18.0); Mean Corpuscular Hemoglobin 30.6 pg (27.0-31.0); Mean Corpuscular Volume 91.9 fL (78.0-98.0); Platelet Count 207 10x3/uL (130-400); Red Blood Cell (RBC) Count 3.95 mill/uL (4.70-6.10); White Blood Cell (WBC) Count 9.06 10x3/uL (4.8-10.8)
[2025-03-15 17:27] LABS: ALT (SGPT) 8 U/L (Less than 45); AST (SGOT) 18 U/L (11-34); Albumin 3.4 g/dL (3.1-4.5); Alkaline Phosphatase 77 U/L (40-110); Anion Gap 17 mmol/L (10-20); BUN (Urea Nitrogen) 25 mg/dL (8.4-25.7); Bilirubin, Total 0.1 mg/dL (0.3-1.2); Calc. Creatinine Clearance 0 mL/min (70-130); Calcium 8.5 mg/dL (7.8-10.44); Carbon Dioxide 16 mmol/L (23-31); Chloride 110 mmol/L (98-107); Globulin 3.2 g/dL (2.4-3.5); Glucose 108 mg/dL (80-115); Potassium 3.5 mmol/L (3.5-5.1); Sodium 139 mmol/L (136-145)
[2025-03-15 18:20] LABS: Magnesium 1.6 mg/dL (1.6-2.6)
[2025-03-15 18:32] LABS: Acetaminophen Less than 10 mcg/mL (Less than 10); Salicylate 13.9 mg/dL (Less than 8.0)
[2025-03-15 19:43] LABS: CAUTI Indications for Culture Fever or rigors; Glucose, Urine (Dipstick) Normal (Negative); Leukocyte 250 Leu/uL (Negative); Protein, Urine (Dipstick) 10 mg/dL (Neg-Trace); RBC/HPF 0-3 HPF (0-3); Specific Gravity, Urine 1.020 (1.002-1.036)
[2025-03-15 19:45] LABS: Bacteria/HPF 1+ HPF (None Seen)
[2025-03-15 19:46] LABS: Urine Culture Reflex Yes Yes
[2025-03-15 19:51] LABS: Cocaine Metabolite Screen PRELIM POSITIVE (Negative); THC/Cannabinoid Screen Negative (Negative); Tricyclic Screen Negative (Negative)
[2025-03-15] MEDS ORDERED: LevoFLOXacin 750 mg/D5W 150 ml Premix Bag ONE (20:14)
[2025-03-15] MEDS ORDERED: Albuterol 200 PUFF (6.7GM INHALER) INH PRN (22:50)
[2025-03-15] MEDS ORDERED: Calcium Carbonate 500 MG ChewTAB PO PRN (22:51)
[2025-03-15] MEDS ORDERED: Ondansetron PF 4 MG/2 ML Vial IVP PRN (22:51)
[2025-03-15] MEDS ORDERED: Acetaminophen 325 MG TAB PO PRN (22:51)
[2025-03-15] MEDS: cefTRIAXone\\ROCEPHIN 1 GM in Sodium Chloride 0.9% 100 ML IVPB SCH (23:07)
[2025-03-16 00:42] VITALS: BMI 29.5
[2025-03-16 04:45] LABS: #Basophils 0.03 10x3/uL (0.0-0.2); #Eosinophils 0.51 10x3/uL (0.0-0.7); #Monocytes 0.86 10x3/uL (0.11-0.59); #Neutrophils 3.52 10x3/uL (1.40-6.50); %Basophils 0.4 % (0.0-1.0); %Eosinophils 7.6 % (0.0-10.0); %Lymphocytes 26.5 % (21.0-51.0); %Monocytes 12.8 % (0.0-10.0); %Neutrophils 52.4 % (42.0-75.0); Hematocrit 32.1 % (42.0-52.0); Hemoglobin 10.6 g/dL (14.0-18.0); Mean Corpuscular Hemoglobin 30.5 pg (27.0-31.0); Mean Corpuscular Volume 92.2 fL (78.0-98.0); Platelet Count 191 10x3/uL (130-400); Red Blood Cell (RBC) Count 3.48 mill/uL (4.70-6.10); White Blood Cell (WBC) Count 6.72 10x3/uL (4.8-10.8)
[2025-03-16 05:08] LABS: ALT (SGPT) 7 U/L (Less than 45); AST (SGOT) 22 U/L (11-34); Albumin 2.8 g/dL (3.1-4.5); Alkaline Phosphatase 71 U/L (40-110); Anion Gap 14 mmol/L (10-20); BUN (Urea Nitrogen) 19 mg/dL (8.4-25.7); Bilirubin, Total 0.2 mg/dL (0.3-1.2); Calc. Creatinine Clearance 54 mL/min (70-130); Calcium 7.9 mg/dL (7.8-10.44); Carbon Dioxide 18 mmol/L (23-31); Chloride 113 mmol/L (98-107); Globulin 2.8 g/dL (2.4-3.5); Glucose 84 mg/dL (80-115); Potassium 3.6 mmol/L (3.5-5.1); Sodium 141 mmol/L (136-145)
[2025-03-16] MEDS: Mometasone 100 MCG/Formoterol 5 MCG 120 PUFF INHALER INH SCH (06:50)
[2025-03-16] MEDS: Allopurinol 100 MG TAB PO SCH (09:18)
[2025-03-16] MEDS: Lisinopril 20 MG TAB PO SCH (09:18)
[2025-03-16] MEDS: Pantoprazole 40 MG DR.TAB PO SCH (09:18)
[2025-03-16] MEDS: Aspirin 81 mg Enteric Coated Tablet PO SCH (09:18)
[2025-03-16] MEDS: Metoprolol Succinate XL 100 MG ER.TAB PO SCH (09:18)
[2025-03-16] MEDS: HYDROcodone/Acetaminophen 5/325 mg Tablet PO PRN (11:07)
[2025-03-16 13:58] VITALS: BMI 29.5
[2025-03-17 05:03] LABS: #Basophils 0.05 10x3/uL (0.0-0.2); #Eosinophils 0.57 10x3/uL (0.0-0.7); #Monocytes 0.86 10x3/uL (0.11-0.59); #Neutrophils 3.22 10x3/uL (1.40-6.50); %Basophils 0.8 % (0.0-1.0); %Eosinophils 8.6 % (0.0-10.0); %Lymphocytes 28.6 % (21.0-51.0); %Monocytes 13.0 % (0.0-10.0); %Neutrophils 48.8 % (42.0-75.0); Hematocrit 33.9 % (42.0-52.0); Hemoglobin 10.9 g/dL (14.0-18.0); Mean Corpuscular Hemoglobin 29.9 pg (27.0-31.0); Mean Corpuscular Volume 93.1 fL (78.0-98.0); Platelet Count 192 10x3/uL (130-400); Red Blood Cell (RBC) Count 3.64 mill/uL (4.70-6.10); White Blood Cell (WBC) Count 6.60 10x3/uL (4.8-10.8)
[2025-03-17 05:33] LABS: ALT (SGPT) Less than 7 U/L (Less than 45); AST (SGOT) 13 U/L (11-34); Albumin 2.9 g/dL (3.1-4.5); Alkaline Phosphatase 64 U/L (40-110); Anion Gap 9 mmol/L (10-20); BUN (Urea Nitrogen) 9 mg/dL (8.4-25.7); Bilirubin, Total 0.4 mg/dL (0.3-1.2); Calc. Creatinine Clearance 78 mL/min (70-130); Calcium 8.8 mg/dL (7.8-10.44); Carbon Dioxide 25 mmol/L (23-31); Chloride 108 mmol/L (98-107); Globulin 3.0 g/dL (2.4-3.5); Glucose 81 mg/dL (80-115); Potassium 4.4 mmol/L (3.5-5.1); Sodium 138 mmol/L (136-145)
[2025-03-17 12:53] VITALS: TEMP 97.4
[2025-03-17 15:24] VITALS: BP 127/78
== END 2025-03-17 16:05 | disposition home or self-care (01) | DRG 683 ==
LOC: ERS 16:41 → 2NO 20:56 → OBSVTOIN 03-16 14:04
PROVIDERS: ADMIT Student in an Organized Health Care Education/Training Program; ATTEND Student in an Organized Health Care Education/Training Program
DX: N17.9 Acute kidney failure, unspecified (principal); N39.0 Urinary tract infection, site not specified; I25.10 Atherosclerotic heart disease of native coronary artery without angina pectoris; I10 Essential (primary) hypertension; E78.5 Hyperlipidemia, unspecified; Z86.73 Personal history of transient ischemic attack (TIA), and cerebral infarction without residual deficits; Z88.8 Allergy status to other drugs, medicaments and biological substances; Z98.890 Other specified postprocedural states; E86.0 Dehydration; R29.810 Facial weakness; F14.10 Cocaine abuse, uncomplicated; F19.10 Other psychoactive substance abuse, uncomplicated; N12 Tubulo-interstitial nephritis, not specified as acute or chronic; Z79.899 Other long term (current) drug therapy; Z79.82 Long term (current) use of aspirin
CPT/HCPCS: 36415; 36416; 70450; 70551; 71045; 74176; 80053; 80306; 80307; 81001; 83605; 83735; 84484; 85025; 87086; 93005; 96361; 96365; J0696; J1956; J7030; J7120